=== PATIENT | female | born 1945 | race Caucasian/White ===

== ENCOUNTER → 2018-01-21 09:01 | Outpatient (CLI) | payer MEDICARE, OTHER, SELFPAY ==
[2018-01-21 10:35] LABS: Alanine Aminotransferase 32 IU/L (9-52); Albumin 4.4 g/dL (3.5-5.0); Albumin Globulin Ratio 1.6 (1.0-2.8); Alkaline Phosphatase 80 U/L (38-126); Aspartate Aminotransferase 23 IU/L (14-36); BUN Creatinine Ratio 17.5 (6-22); Bilirubin Total 0.3 mg/dL (0.2-1.3); Blood Urea Nitrogen 14 mg/dL (7-17); Calcium 9.4 mg/dL (8.4-10.2); Carbon Dioxide 30 mmol/L (22-32); Chloride 103 mmol/L (98-107); Cholesterol 174 mg/dL (140-199); Estimated Glomerular Filt Rate > 60.0 mL/min (>60); Globulin 2.7 g/dL (1.7-4.1); Glucose 94 mg/dL (80-110); HDL Cholesterol 54 mg/dL (40-60); HEMOLYSIS < 15 (0-50); LDL Cholesterol Calculated 91 mg/dL (<100); Potassium 4.3 mmol/L (3.4-5.1); Sodium 145 mmol/L (137-145); Total Protein 7.1 g/dL (6.3-8.2); Triglycerides 143 mg/dL (35-150)
[2018-01-21 11:24] LABS: Vitamin D 25 Hydroxy (D3) 47.9 ng/mL (30.0-100.0)
== END ==
PROVIDERS: PCP Student in an Organized Health Care Education/Training Program; Visit Provider Student in an Organized Health Care Education/Training Program
DX: I10 Essential (primary) hypertension (principal); Z79.899 Other long term (current) drug therapy; E78.2 Mixed hyperlipidemia; E55.9 Vitamin D deficiency, unspecified
CPT/HCPCS: 36415; 80053; 80061; 82306

== ENCOUNTER 2018-03-07 10:12 | Emergency (ER) | payer MEDICARE, OTHER, SELFPAY ==
[2018-03-07] VITALS (7 sets, daily range): BP systolic 121–148; BP diastolic 67–78; PULSE 86–99; RESP 18–22; TEMP 36.9–37.1; O2SAT 92–95; BMI 29.9
--- NOTE | 2018-03-07 10:41 | DI.RAD.S_ITS ---
PROCEDURE: XR CHEST 2V INDICATIONS: cough and congestion TECHNIQUE: 2 views of the chest were acquired. COMPARISON: None. FINDINGS: Surgical changes and devices: None. Lungs and pleura: No pleural effusions or pneumothorax. Lungs are clear. Mediastinum: Mediastinal contours are normal. Heart size is normal. Aortic atherosclerosis is present. Bones and chest wall: No suspicious bony abnormalities. Soft tissues appear unremarkable. IMPRESSION: Essentially unremarkable chest. No acute cardiopulmonary process is evident. Dictated by: Brandyn England M.D. on 03/07/2018 at 9:58 Approved by: Brandyn England M.D. on 03/07/2018 at 10:05
[2018-03-07] MEDS: ALBUTEROL/IPRATROPIUM 3 ML AMPUL INH (12:26)
[2018-03-07] MEDS: predniSONE 20 MG TABLET 40 MG PO (12:28)
[2018-03-07 13:14] LABS: Influenza A and B by PCR Rapid Negative (Negative)
--- NOTE | 2018-03-07 20:27 | ED_ITS ---
HPI - URI/Sore Throat General Chief Complaint: Upper Respiratory Symptoms Stated Complaint: chest congestion getting worse Time Seen by Provider: 03/07/18 10:18 Source: patient and family Mode of arrival: ambulatory Limitations: no limitations History of Present Illness HPI Narrative: 72-year-old nonsmoker with history of asthma presents with upper respiratory symptoms including runny nose, sore throat, cough and wheeze for the past few days. She denies any significant fever or productive cough. She has been using her bronchodilators and asthma medications as previously directed. She denies nausea, vomiting or diarrhea. MD Complaint: cough, rhinorrhea and nasal congestion Onset (ago): day(s) Duration: constant Severity: moderate Relieving factors: nothing Exacerbating factors: nothing Description of mucous: clear and watery Able to tolerate fluids by mouth: Yes Treatments prior to arrival: none Related Data Home Medications Medication Instructions Recorded Confirmed albuterol sulfate [Proventil HFA] 1 puff INH Q4H PRN #0 05/19/17 03/07/18 losartan [Cozaar] 25 mg PO DAILY #0 05/19/17 03/07/18 montelukast 10 mg PO QPM #0 05/19/17 03/07/18 simvastatin 40 mg PO BEDTIME #0 05/19/17 03/07/18 Glucosamine 1 tab PO DAILY 03/07/18 03/07/18 loratadine [Allerclear] 10 mg PO QPM 03/07/18 03/07/18 tiotropium bromide [Spiriva with 1 cap INHALATION DAILY 03/07/18 03/07/18 HandiHaler] Previous Rx's Medication Instructions Recorded budesonide-formoterol HFA 160 2 inhalation INHALATION BID #10.2 01/28/18 mcg-4.5 mcg/actuation aerosol gram inhaler prednisone See Label Instructions .ROUTE 03/07/18 .COMPLEX #30 tab Allergies Allergy/AdvReac Type Severity Reaction Status Date / Time No Known Drug Allergies Allergy Verified 01/14/18 10:15 Review of Systems Review of Systems All systems reviewed & are unremarkable except as noted in HPI and below Constitutional Denies chills, Denies fever(s), Denies lethargy and Denies weakness Eyes Denies change in vision, Denies eye discharge, Denies irritation and Denies loss of vision ENT Ears, Nose, Mouth, and Throat: Denies change in voice, Reports nasal congestion , Reports nasal discharge, Denies neck pain and Denies sore throat Cardiovascular Denies chest pain, Denies irregular heart rhythm, Denies lightheadedness, Denies palpitations, Reports dyspnea, Denies dyspnea on exertion and Denies orthopnea Respiratory Denies cough, Reports dyspnea, Denies dyspnea on exertion and Reports wheezing Gastrointestinal Gastrointestinal: Denies abdominal pain, Denies change in bowel habits, Denies diarrhea, Denies nausea and Denies vomiting Genitourinary Denies hematuria, Denies flank pain, Denies urinary incontinence and Denies urinary urgency Musculoskeletal Denies neck pain Integumentary/Breasts Denies pruritus, Denies erythema, Denies rash and Denies wounds Neurologic Denies confusion, Denies loss of vision and Denies weakness Psychiatric Denies anxiety, Denies confusion, Denies depression, Denies homicidal ideation and Denies suicidal ideation Endocrine Denies palpitations Hematologic/Lymphatic Denies easy bruising Allergic/Immunologic Reports wheezing [facility] Medical History Asthma (Chronic) Hayfever (Chronic) Hip pain (Chronic) Hyperlipidemia (Chronic 2013) Osteopenia (Chronic 2005) Sleep apnea (Chronic 2012) Surgical History Anesthesia (Resolved) History of cataract surgery (Resolved 2011) History of section (Resolved 1972) History of section (Resolved 1975) History of incision and drainage (Resolved 11/2016) Family History Father Heart disease Alcoholism Mother Heart disease Emphysema of lung Brother Morbid obesity Diabetes mellitus Heart disease Hypertension Hyperlipidemia Sister Breast cancer Grandfather Lung disease Grandmother Heart disease Grandfather No problems noted. Grandmother No problems noted. Daughter No problems noted. Daughter No problems noted. Social History Smoking Status: Never smoker alcohol intake: never substance use type: does not use Exam Narrative Exam Narrative: GENERAL: This is a well-nourished, well-developed patient, in mild distress. HEAD: Atraumatic. Normocephalic. No temporal or scalp tenderness. EYES: Pupils equal round and reactive. Extraocular motions intact. No scleral icterus. No injection or drainage. ENT: Nasal congestion, clear drainage bilaterally Nose without bleeding, purulent drainage or septal hematoma. Throat without erythema, tonsillar hypertrophy or exudate. Uvula midline. Airway patent. NECK: Trachea midline. No JVD or lymphadenopathy. Supple, nontender, no meningeal signs. CARDIOVASCULAR: Regular rate and rhythm without murmurs, gallops, or rubs. RESPIRATORY: Expiratory wheeze in all mckeon, no significant GASTROINTESTINAL: Abdomen soft, non-tender, nondistended. No hepato-splenomegaly , or palpable masses. No guarding. EXTREMITIES: No clubbing, cyanosis, or edema. No joint tenderness, effusion, or edema noted. BACK: Nontender without deformity or crepitance. No flank tenderness. NEURO: AOx3. SKIN: No rash or erythema. Initial Vital Signs Initial Vital Signs: Vital Signs Temperature 98.4 F 03/07/18 10:26 Pulse Rate 98 H 03/07/18 10:26 Respiratory Rate 22 03/07/18 10:26 Blood Pressure 148/71 H 03/07/18 10:26 Pulse Oximetry 94 03/07/18 10:26 Course Orders Ordered: ED Orders 03/07/18 12:45 Influenza A and B by PCR Rapid Stat Discontinued Medications Albuterol/Ipratropium (Duoneb) 3 ml INH NOW ONE Stop: 03/07/18 11:46 Last Admin: 03/07/18 12:26 Dose: 3 ml Prednisone (Deltasone) 40 mg PO NOW ONE Stop: 03/07/18 11:47 Last Admin: 03/07/18 12:28 Dose: 40 mg Vital Signs - 8 hr 03/07/18 12:31 03/07/18 13:00 03/07/18 14:16 Temperature 98.8 F Pulse Rate 86 99 H 93 H Respiratory Rate 18 20 Blood Pressure [Left Arm] 121/67 127/78 Pulse Oximetry 93 92 95 MDM - URI/Sore Throat Differential Diagnosis Differential diagnosis: Likely upper respiratory infection, viral infection, bronchitis and influenza Medical Records Attestation: I reviewed the patient's medical records. Lab Data Attestation: I reviewed the patient's lab results. Lab Results 03/07/18 Range/Units 12:45 Influenza A & B (PCR) Negative (Negative) Imaging Data Chest x-ray: Radiologist's impression: [address] [address] XRay Report Signed Patient: Pita Kauffman KMR#: [id number] : 7Acct:[id number] Age/Sex: 72 / FDate of Service: 03/07/18 Loc: ED Accession Number: [id number] Procedure: XR chest 2V Ordering Provider: Denzel Aj D.O. PROCEDURE: XR CHEST 2V INDICATIONS: cough and congestion TECHNIQUE: 2 views of the chest were acquired. COMPARISON: None. FINDINGS: Surgical changes and devices: None. Lungs and pleura: No pleural effusions or pneumothorax. Lungs are clear. Mediastinum: Mediastinal contours are normal. Heart size is normal. Aortic atherosclerosis is present. Bones and chest wall: No suspicious bony abnormalities. Soft tissues appear unremarkable. IMPRESSION: Essentially unremarkable chest. No acute cardiopulmonary process is evident. Dictated by: Brandyn England M.D. on 03/07/2018 at 9:58 Approved by: Brandyn England M.D. on 03/07/2018 at 10:05 Discharge Plan Departure Patient Disposition: Home Clinical Impression: Asthma exacerbation, Upper respiratory virus Discharge Date/Time: 03/07/18 14:20 Interventions: ED Discharge Assessment Last Done: 03/07/18 14:20 Instructions: Acute Bronchitis Activity Restrictions/Additional Instructions: *You have been diagnosed with [acute viral upper respiratory infection with asthma exacerbation ] *What to do: *Take medications as directed: Rx sent to [facility] *Follow up with your primary care provider in 2-3 days, call for an appointment. Let them know you were seen in the Emergency Department and that we ask that you be seen in follow up *Return to ER if you should have any new, worsening or concerning symptoms Prescriptions: New prednisone 10 mg tablet See Label Instructions .ROUTE .COMPLEX Qty: 30 RF: 0 No Action simvastatin 40 MG tablet 40 mg PO BEDTIME Qty: 0 RF: 0 losartan [Cozaar] 25 MG tablet 25 mg PO DAILY Qty: 0 RF: 0 montelukast 10 MG tablet 10 mg PO QPM Qty: 0 RF: 0 albuterol sulfate [Proventil HFA] 90 MCG/PUFF HFA aerosol inhaler 1 puff INH Q4H PRN (Reason: Shortness Of Breath) Qty: 0 RF: 0 budesonide-formoterol [Symbicort] 160-4.5 mcg/actuation HFA aerosol inhaler 2 inhalation INHALATION BID Qty: 10.2 RF: 2 loratadine [Allerclear] 10 mg Tablet 10 mg PO QPM RF: 0 Glucosamine 1 tab PO DAILY RF: 0 tiotropium bromide [Spiriva with HandiHaler] 18 mcg capsule, w/inhalation device 1 cap INHALATION DAILY RF: 0 Referrals: Antelmo Naik MD [Primary Care Provider] -
== END 2018-03-07 14:20 | disposition home or self-care (01) ==
PROVIDERS: Emergency Provider Emergency Medicine; PCP Student in an Organized Health Care Education/Training Program
DX: J45.901 Unspecified asthma with (acute) exacerbation (principal); J06.9 Acute upper respiratory infection, unspecified
CPT/HCPCS: 71046; 87400; 94640; 99283; 99284

== ENCOUNTER → 2018-09-19 08:57 | Outpatient (CLI) | payer MEDICARE, OTHER, SELFPAY ==
[2018-06-17 09:26] VITALS: BMI 24.0; BMI 28.3
--- NOTE | 2018-09-24 10:40 | PM.PFT.1 ---
Pulmonary Function Test Referral & Results Date Patient Seen: 09/19/18 Requesting provider: Dell Gibson Results: The spirometry demonstrates an FVC of 1.58 L which is 56% of predicted. The FEV1 was measured at 630 mL which is 29% of predicted. The FEV1/FVC ratio was 40 which is 52% of predicted. Following the administration of bronchodilator there was a 19% improvement in FEV1 and a 17% improvement in FEF 25-75%. Lung volumes show an SVC of 1.76 L which is 64% of predicted. The diffusing capacity was measured at 14.80 which is 64% of predicted. No hemoglobin value was provided, so no correction for potential anemia could be made, if appropriate. The maximum voluntary ventilation was [] Interpretation: This study demonstrates severe obstructive lung disease with an FEV1 of less than 1 L. There is evidence of reversibility based on significant improvement following bronchodilator administration Lung volumes are also reduced suggesting moderate restrictive lung disease There is also a mild/moderate reduction in diffusing capacity suggesting some element of disease at the capillary alveolar level
--- NOTE | 2018-09-24 10:43 | P.PFT.S_ITS ---
Pulmonary Function Test Referral & Results Date Patient Seen: 09/19/18 Requesting provider: Dell Gibson Results: The spirometry demonstrates an FVC of 1.58 L which is 56% of predicted. The FEV1 was measured at 630 mL which is 29% of predicted. The FEV1/FVC ratio was 40 which is 52% of predicted. Following the administration of bronchodilator there was a 19% improvement in FEV1 and a 17% improvement in FEF 25-75%. Lung volumes show an SVC of 1.76 L which is 64% of predicted. The diffusing capacity was measured at 14.80 which is 64% of predicted. No hemoglobin value was provided, so no correction for potential anemia could be made, if appropriate. The maximum voluntary ventilation was [] Interpretation: This study demonstrates severe obstructive lung disease with an FEV1 of less chiqui n 1 L. There is evidence of reversibility based on significant improvement following bronchodilator administration Lung volumes are also reduced suggesting moderate restrictive lung disease There is also a mild/moderate reduction in diffusing capacity suggesting some element of disease at the capillary alveolar level
== END ==
PROVIDERS: PCP Student in an Organized Health Care Education/Training Program; Referring Provider Internal Medicine Critical Care Medicine; Visit Provider Allergy & Immunology
DX: J44.9 Chronic obstructive pulmonary disease, unspecified (principal)
CPT/HCPCS: 94060; 94726; 94729

== ENCOUNTER 2018-09-29 14:00 | Outpatient (RCR) | payer MEDICARE, OTHER, SELFPAY ==
[2018-06-17 09:26] VITALS: BP 126/78; RESP 14; O2SAT 93; BMI 24.0; BMI 28.3
--- NOTE | 2018-06-17 13:27 | PR.IEVALNOTE ---
Current Diagnoses Chronic obstructive pulmonary disease, unspecified (06/17/18) Past Medical History (Last Reviewed 03/07/18 @ 20:26 by Denzel Aj DO) Asthma (Chronic) Hayfever (Chronic) Hip pain (Chronic) Hyperlipidemia (Chronic 2013) Osteopenia (Chronic 2005) Sleep apnea (Chronic 2012) Provider Team Visit Care Team Role Provider Type Antelmo Naik MD Primary Care Provider Physician Specialty: Internal Medicine Address: [address] [place] [address], [address] Email: Dell Gibson MD Attending Provider Non-Staff Specialty: Allergy & Immunology Address: [address] [place] [address], [address] Email: Pulmonary Rehab Initial Evaluation [place] Pulmonary Rehab Inital Assessment Start: 06/17/18 09:26 Freq: Status: Active Protocol: Document 06/17/18 09:26 OBINNA (Rec: 06/17/18 09:28 OBINNA [id number]) GA Exercise Assessment Dx: COPD, severe Comment chronic asthma Primary Language KINYARWANDA Guide Cruise Required No Hearing Ability Normal Visual Impairment No Limitations Visual Assist Glasses Body Alignment Posture Good Posture Relaxed Comment bursistis R hip History of Falling (Immediate or No Previous) Secondary Diagnosis (More Than 2 Medical No Diagnoses) Ambulatory Aid None/bed rest/nurse assist IV/Heparin Lock No Mental Status Oriented to own ability Comment walks up to 2.5 miles 2x week GA Vital Signs Pulse Oximetry (91-100 %) 93 Nasal Cannula No Respiratory Rate (12-24 breaths/min) 14 Respiratory Effort Non-Labored Respiratory Depth Normal Assessment clear to auscultation no wheezes, rales rhonchi slightly diminished Right Arm Blood Pressure (90/60-140/90 mmHg) 126/78 Blood Pressure Method Manual Cuff/Auscultation Blood Pressure Position Sitting Left Arm Blood Pressure (90/60-140/90 mmHg) 126/78 Blood Pressure Method Manual Cuff/Auscultation Blood Pressure Position Sitting GA Six Minute Walk Test Respiratory Rate (breaths/min) 14 Pulse Rate (beats/min) 73 O2 Saturation by Pulse Oximetry (%) 93 Pulse Rate (beats/min) 91 Ambulation Distance (feet) 200 O2 Saturation by Pulse Oximetry (%) 88 Pulse Rate (beats/min) 96 Ambulation Distance (feet) 200 O2 Saturation by Pulse Oximetry (%) 87 Pulse Rate (beats/min) 97 Ambulatory Distance (feet) 200 O2 Saturation by Pulse Oximetry (%) 88 Pulse Rate (beats/min) 97 Ambulation Distance (feet) 300 O2 Saturation by Pulse Oximetry (%) 89 Pulse Rate (beats/min) 97 Ambulation Distance (feet) 150 O2 Saturation by Pulse Oximetry (%) 90 PUlse Rate (beats/min) 95 Ambulation Distance (feet) 200 O2 Saturation by Pulse Oximetry (%) 88 Respiratory Rate (breaths/min) 16 Pulse Rate (beats/min) 75 O2 Saturation by Pulse Oximetry (%) 95 Activity Tolerance Good Distance 1250.0 Waqar RPE Scale 12 Oriented to RPE Scale Yes Dyspnea 2 Oriented to Dyspnea Scale Yes GA Exercise Goals Exercise Goals progression of exercise training will result from increases in time, intensity, and frequency. Initial emphasis will be on increasing intensity. Exercise Goals demonstrate proper technique with pursed lip breathing demonstrate proper breath sequencing DASI Number and Comment 7.25 mets GA Nutrition Assessment PFT Date 04/22/18 Forced Vital Capacity (FVC) 1.29 45% Forced Exp. Volume/Forced Vital Cap 54 Ratio (FEV1/FVC Ratio) Forced Expiratory Volume in 1 sec. 0.70 33% Admit Height 160.02 cm Admit Weight 72.575 kg Admit Body Mass Index (BMI) 28.3 Additional Comment discussed referral to superintendent maintenance Weight Goal 150 BMI Goal 24 Liters Per Minute at Rest 0 Liters per Minute with ADL's 0 Liters per Minute with Sleep 0 Liters per Minute with Exercise 0 High Energy Periods Mid-Afternoon Tolerates Activity Good Signs and Symptoms Activity Intolerance Dyspnea on Exertion Daytime Naps No GA Education Pre-Test Score 65% Tobacco Use Former, Quit >6 Months Tobacco Product Used cigarettes Total Years Used 35 Use No Concerns None Education Topics Breathing Retraining Discussed Education Requirements on Yes Intake GA Psychosocial Initial Assess HADS Score 3 HADS Score 4 Marital Status Physician Comment Ready for Pulmonary Rehabilitation Cooperative Motivated
[2018-07-17 15:42] VITALS: BMI 29.5
--- NOTE | 2018-07-17 15:50 | PR.REVALNOTE ---
Current Diagnoses Chronic obstructive pulmonary disease, unspecified (07/17/18) Past Medical History (Last Reviewed 03/07/18 @ 20:26 by Denzel Aj DO) Asthma (Chronic) Hayfever (Chronic) Hip pain (Chronic) Hyperlipidemia (Chronic 2013) Osteopenia (Chronic 2005) Sleep apnea (Chronic 2012) Provider Team Visit Care Team Role Provider Type Dell Gibson MD Non-Staff Specialty: Medical Address: [address] [place] [address], [address] Email: Antelmo Naik MD Primary Care Provider Physician Specialty: Internal Medicine Address: [address] [place] [address], [id number] Email: Dell Gibson MD Attending Provider Non-Staff Specialty: Allergy & Immunology Address: [address] [place], [address] Email: Pulmonary Rehab Re-Evaluation IN Pulmonary Rehab. Re-Assessment Start: 06/17/18 09:26 Freq: Status: Active Protocol: Document 07/17/18 15:42 OBINNA (Rec: 07/17/18 15:50 OBINNA [id number]) IN Exercise Re-Assessment New Session Number 1-12 Type Nustep Treadmill METs (resistance level) 3.50 TM 3.02 NS % Improvement 23% TM 13% NS Interval Training Yes: 5.59 NS Shortness of Breath with Exercise Yes Desaturation with Exercise No Free Weight Yes: 3# 12R 2S Band Level Yes: #4 BAND Intervention Frequent reminders to initiate PLB when short of breath Toward Target Goals demonstrates proper technique with pursed lip breathing- showing progress IN Nutrition Re-Assessment Height 160.02 cm Weight 75.735 kg Current BMI (BMI) 29.5 Progress to Weight Goal Yes Hypoxia Re-Assessment does not require supplemental oxygen at this time IN Education Re-Assessment Topics Normal Anatomy and Physiology Chronic Lung Disease Description and Interpretation Medical Tests Breathing Retraining Goals Pt will Master PLB and Diaphragmatic Breathing Pt will Master Energy Conserving Techniques Pt will learn exercise safety Pt will continue ED topics until completion IN Psychosocial Re-Assessment Patient in Class Regularly Yes Interventions Pt attending class regularly Goals Pt will continue to attend classes 3x wk Participate in social and educational discussion Received emotional support from family/friends
--- NOTE | 2018-09-29 16:33 | PR.DCNOTE ---
Current Diagnoses Chronic obstructive pulmonary disease, unspecified (09/29/18) Past Medical History (Last Reviewed 03/07/18 @ 20:26 by Denzel Aj DO) Asthma (Chronic) Hayfever (Chronic) Hip pain (Chronic) Hyperlipidemia (Chronic 2013) Osteopenia (Chronic 2005) Sleep apnea (Chronic 2012) Provider Team Visit Care Team Role Provider Type Dell Gibson MD Non-Staff Specialty: Medical Address: [address] [place] [address], [facility] Email: Antelmo Naik MD Primary Care Provider Physician Specialty: Internal Medicine Address: [address] [place] [address], [address] Email: Dell Gibson MD Attending Provider Non-Staff Specialty: Allergy & Immunology Address: [facility] [place], [address] Email: Pulmonary Rehab Discharge Evaluation [place] Pulmonary Rehab. DC Assessment Start: 06/17/18 09:26 Freq: Status: Active Protocol: Document 09/29/18 16:22 [facility] (Rec: 09/29/18 16:33 [facility] [id number]) NE Exercise Discharge Assess Session 1 Type Treadmill DELIA METs (resistance level) 6.23TM 7.0 STRDR % Improvement TM 161% STRDR 168% Interval Training Yes Shortness of Breath with Exercise Yes Desaturation with Exercise No Free Weight Yes: 3# 12R 3S Band Level Yes: #4 Toward Target Goals Functional resistance exercises-goal met issued independent resistance exercise program Aerobic activity-increased participation in physical activities both domestic and recreational activities improved functional capacity with improved endurance and strength NE Nutrition DC Assessment Weight 76.204 kg Weight Goal Met No Patient Ready Yes Reason Completed Max Sessions NE Education DC Assessment Education Topics Normal Pulmonary Anatomy and Physiology Chronic Lung Disease Description and Interpretation of Medical Tests Breathing Retraining Bronchial Hygiene Medications Benefits of Exercise Activities of Daily Living/ Leisure Activities Eating Right Irritant Avoidance/Prevention of Respiratory Infection Coping with Chronic Lung Disease Oxygen How and When Asthma Education Target Goals Pt was educated on home exercise prescription Pt educated on home resistance training Pt educated on oxygen therapy for home PT educated on medication's taken at home Pt educated on PBL and relaxation techniques NE Psychosocial DC Assessment HADS Depression Score 4 HADS Anxiety Score 3 Phase III Yes NE Six Minute Walk Test Oxygen Delivery Method Room Air Respiratory Rate (breaths/min) 12 Pulse Rate (beats/min) 85 O2 Saturation by Pulse Oximetry (%) 95 Pulse Rate (beats/min) 103 Ambulation Distance (feet) 250 O2 Saturation by Pulse Oximetry (%) 95 Pulse Rate (beats/min) 108 Ambulation Distance (feet) 250 O2 Saturation by Pulse Oximetry (%) 93 Pulse Rate (beats/min) 111 Ambulatory Distance (feet) 250 O2 Saturation by Pulse Oximetry (%) 92 Pulse Rate (beats/min) 107 Ambulation Distance (feet) 250 O2 Saturation by Pulse Oximetry (%) 93 Pulse Rate (beats/min) 109 Ambulation Distance (feet) 250 O2 Saturation by Pulse Oximetry (%) 93 PUlse Rate (beats/min) 109 Ambulation Distance (feet) 275 O2 Saturation by Pulse Oximetry (%) 93 Respiratory Rate (breaths/min) 16 Pulse Rate (beats/min) 92 O2 Saturation by Pulse Oximetry (%) 93 Activity Tolerance Good Adverse Reactions Increased Shortness of Breath Distance 1525 Waqar RPE Scale 11 Oriented to RPE Scale Yes Dyspnea 2 Oriented to Dyspnea Scale Yes
== END 2018-10-02 07:37 ==
LOC: PUL 14:00
PROVIDERS: PCP Student in an Organized Health Care Education/Training Program; Visit Provider Allergy & Immunology
DX: J44.9 Chronic obstructive pulmonary disease, unspecified (principal)
CPT/HCPCS: G0424

== ENCOUNTER → 2018-12-24 09:15 | Outpatient (CLI) | payer MEDICARE, OTHER, SELFPAY ==
[2018-06-17 09:26] VITALS: BMI 24.0; BMI 28.3
--- NOTE | 2018-12-24 09:17 | DI.MG.S_ITS ---
BILATERAL DIGITAL SCREENING MAMMOGRAM 3D/2D WITH CAD: 12/24/2018 CLINICAL: Routine screening. Family history of breast cancer. Comparison is made to exams dated: 04/10/2016 mammogram and 08/22/2017 mammogram - [facility]. The tissue of both breasts is heterogeneously dense. This may lower the sensitivity of mammography. Current study was also evaluated with a Computer Aided Detection (CAD) system. No significant masses, calcifications, or other findings are seen in either breast. There has been no significant interval change. IMPRESSION: NEGATIVE There is no mammographic evidence of malignancy. A 1 year screening mammogram is recommended. This exam was interpreted at Station ID: [id number]. NOTE: For mammograms, a report in lay terms will be sent to the patient. Approximately 15% of breast malignancies will not be visualized mammographically. In the management of a palpable breast mass, a negative mammogram must not discourage biopsy of a clinically suspicious lesion. Electronically Signed By: Chris nunez/nyla:12/24/2018 18:03:19 letter sent: Normal Exam ACR BI-RADS Category 1: Negative [id number]
== END ==
PROVIDERS: PCP Student in an Organized Health Care Education/Training Program; Visit Provider Student in an Organized Health Care Education/Training Program
DX: Z12.31 Encounter for screening mammogram for malignant neoplasm of breast (principal); Z80.3 Family history of malignant neoplasm of breast
CPT/HCPCS: 77063; 77067

== ENCOUNTER → 2019-02-06 12:56 | Outpatient (CLI) | payer MEDICARE, OTHER, SELFPAY ==
[2018-06-17 09:26] VITALS: BMI 24.0; BMI 28.3
== END ==
PROVIDERS: PCP Student in an Organized Health Care Education/Training Program; Visit Provider Student in an Organized Health Care Education/Training Program
DX: M85.852 Other specified disorders of bone density and structure, left thigh (principal); Z87.891 Personal history of nicotine dependence; Z78.0 Asymptomatic menopausal state; Z91.89 Other specified personal risk factors, not elsewhere classified
CPT/HCPCS: 77080

== ENCOUNTER 2019-02-12 09:25 | Emergency (ER) | payer MEDICARE, OTHER, SELFPAY ==
[2018-06-17 09:26] VITALS: BMI 24.0; BMI 28.3
[2019-02-12 09:30] VITALS: BP 153/81; PULSE 89; RESP 15; TEMP 36.7; O2SAT 98; BMI 30.5
--- NOTE | 2019-02-12 09:43 | DI.RAD.S_ITS ---
PROCEDURE: XR WRIST LT MIN 3V INDICATIONS: pain TECHNIQUE: 4 views of the wrist were acquired. COMPARISON: None. FINDINGS: Bones: Osteophytic changes are noted throughout wrist joints predominantly involving radial aspect. No gross acute fractures or dislocations. No suspicious bony lesions. Scaphoid view: Scaphoid is grossly intact. Soft tissues: No suspicious soft tissue calcifications. IMPRESSION: Osteophytic changes throughout wrist joints predominately along radial aspect. No definite acute wrist fracture or dislocation. Dictated by: Fausto Paulino M.D. on 02/12/2019 at 10:27 Approved by: Fausto Paulino M.D. on 02/12/2019 at 10:35
[2019-02-12 10:00] VITALS: BP 135/64; PULSE 72; RESP 14; O2SAT 95
--- NOTE | 2019-02-12 10:24 | ED.UPPEXIN ---
HPI - Extremity Injury (Upper) General Chief Complaint: Extremity Injury, Upper Stated Complaint: Left wrist pain/swollen Time Seen by Provider: 02/12/19 09:34 Source: patient Mode of arrival: Ambulatory Limitations: no limitations History of Present Illness HPI narrative: Patient is a 73-year-old female who presents with left wrist pain ongoing for the last 5 days. She denies any injury or fall she notes that it is swollen. She does admit but has been dating for quite sometime she denies any overuse. She has no numbness or tingling. She has a history of cellulitis in her legs she was worried it might be that. However there is no erythema she denies any fever or chills. She has been taking Tylenol and ibuprofen as needed MD complaint: injury to: left and wrist Related Data Home Medications Medication Instructions Recorded Confirmed albuterol sulfate [Proventil HFA] 1 puff INH Q4H PRN #0 05/19/17 01/29/19 montelukast 10 mg PO QPM #0 05/19/17 01/29/19 Glucosamine 1 tab PO DAILY 03/07/18 01/29/19 loratadine [Allerclear] 10 mg PO QPM 03/07/18 01/29/19 Previous Rx's Medication Instructions Recorded budesonide-formoterol HFA 160 2 inhalation INHALATION BID #10.2 01/28/18 mcg-4.5 mcg/actuation aerosol gram inhaler tiotropium bromide 18 mcg capsule 1 cap INHALATION DAILY #90 10/03/18 with inhalation device inhalation losartan 25 mg tablet 25 mg PO DAILY #90 tab 01/29/19 simvastatin 40 mg tablet 40 mg PO BEDTIME #90 tab 01/29/19 Allergies Allergy/AdvReac Type Severity Reaction Status Date / Time No Known Drug Allergies Allergy Verified 02/12/19 09:30 Review of Systems Review of Systems Narrative: GENERAL: Denies chills,fever HEENT: Denies throat pain RESPIRATORY: Denies dyspnea, cough, wheezing CARDIOVASCULAR: Denies chest pain, palpitations GASTROINTESTINAL: Denies nausea, vomiting MUSCULOSKELETAL: See HPI SKIN: No rash, no laceration, no pruritus NEUROLOGIC: Denies weakness, dizziness, headache, numbness 8 point review of systems is negative except for those stated above and HPI Patient History Medical History Asthma (Chronic) Hayfever (Chronic) Hip pain (Chronic) Hyperlipidemia (Chronic 2013) Osteopenia (Chronic 2005) Sleep apnea (Chronic 2012) Surgical History Anesthesia (Resolved) History of cataract surgery (Resolved 2011) History of section (Resolved 1972) History of section (Resolved 1975) History of incision and drainage (Resolved 11/2016) Family History Father Heart disease Alcoholism Mother Heart disease Emphysema of lung Brother Morbid obesity Diabetes mellitus Heart disease Hypertension Hyperlipidemia Sister Breast cancer Grandfather Lung disease Grandmother Heart disease Grandfather No problems noted. Grandmother No problems noted. Daughter No problems noted. Daughter No problems noted. Social History Smoking Status: Never smoker Tobacco: How many years used: 35 alcohol intake: never substance use type: does not use alcohol intake frequency: 0-2 drinks per day Substance Use Type: does not use Exam Initial Vital Signs Initial Vital Signs: Vital Signs Temperature 98.0 F 02/12/19 09:30 Pulse Rate 89 02/12/19 09:30 Respiratory Rate 15 02/12/19 09:30 Blood Pressure 153/81 H 02/12/19 09:30 Pulse Oximetry 98 02/12/19 09:30 GENERAL: Alert pleasant well-appearing female no acute distress CARDIOVASCULAR: peripheral pulses in tact, cap refill <2 sec RESPIRATORY: No respiratory distress, speaks in full sentences without difficulty EXTREMITIES: Normal range of motion, no clubbing or edema. Neurovascularly intact Left wrist at thenar eminence does appear slightly swollen no erythema peripheral pulses intact. Pain with wrist flexion and extension. No pain with pronation or supination. NEUROLOGICAL: Cranial nerves II through XII grossly intact. Normal gait and speech. SKIN: Warm, dry, no petechiae, no rashes or lesions. Course Orders Ordered: ED Orders 02/12/19 09:43 XR wrist LT min 3V Stat Vital Signs Vital signs: Vital Signs - 8 hr 02/12/19 10:00 Pulse Rate 72 Respiratory Rate 14 Blood Pressure [Right Arm] 135/64 Pulse Oximetry 95 MDM - Extremity Injury (Upper) Imaging Data left wrist XR: Radiologist's impression: PROCEDURE: XR WRIST LT MIN 3V INDICATIONS: pain TECHNIQUE: 4 views of the wrist were acquired. COMPARISON: None. FINDINGS: Bones: Osteophytic changes are noted throughout wrist joints predominantly involving radial aspect. No gross acute fractures or dislocations. No suspicious bony lesions. Scaphoid view: Scaphoid is grossly intact. Soft tissues: No suspicious soft tissue calcifications. IMPRESSION: Osteophytic changes throughout wrist joints predominately along radial aspect. No definite acute wrist fracture or dislocation. Dictated by: Fausto Paulino M.D. on 02/12/2019 at 10:27 [facility] Narrative Medical decision making narrative: No sign of infection no trauma or injury. There is some swelling likely spur he had a recommended she get a brace from pharmacy and take ibuprofen as needed for pain. Discharge Plan Departure Patient Disposition: Home Clinical Impression: Left wrist sprain Qualifiers: Encounter type: initial encounter Qualified Code(s): S63.502A - Unspecified sprain of left wrist, initial encounter Discharge Date/Time: 02/12/19 10:39 Instructions: DI for Wrist Sprain Activity Restrictions/Additional Instructions: *You have been diagnosed with left wrist sprain *What to do: At this time I recommend a low wrist brace and wear it as needed. May ice 20-30 minutes at a time. Limit use but may increase the tolerated. Elevate *Continue to take medications as directed Ibuprofen 600 mg every 6-8 hours if needed for pain for 1 week with food *Follow up with your primary care provider in 2-3 days *Return to ER if you should have of redness, increasing pain, weakness in fingers swelling or any new, worsening or concerning symptoms Prescriptions: No Action montelukast 10 MG tablet 10 mg PO QPM Qty: 0 RF: 0 albuterol sulfate [Proventil HFA] 90 MCG/PUFF HFA aerosol inhaler 1 puff INH Q4H PRN (Reason: Shortness Of Breath) Qty: 0 RF: 0 budesonide-formoterol [Symbicort] 160-4.5 mcg/actuation HFA aerosol inhaler 2 inhalation INHALATION BID Qty: 10.2 RF: 2 Spiriva with HandiHaler 18 mcg capsule, w/inhalation device 1 cap INHALATION DAILY Qty: 90 RF: 1 losartan [Cozaar] 25 mg tablet 25 mg PO DAILY Qty: 90 RF: 3 simvastatin 40 mg tablet 40 mg PO BEDTIME Qty: 90 RF: 3 loratadine [Allerclear] 10 mg Tablet 10 mg PO QPM RF: 0 Glucosamine 1 tab PO DAILY RF: 0 Referrals: Antelmo Naik MD [Primary Care Provider] -
== END 2019-02-12 10:39 | disposition home or self-care (01) ==
PROVIDERS: Emergency Provider Emergency Medicine; PCP Student in an Organized Health Care Education/Training Program
DX: S63.502A Unspecified sprain of left wrist, initial encounter (principal)
CPT/HCPCS: 73110; 99282; 99283

== ENCOUNTER → 2019-05-25 06:25 | Outpatient (CLI) | payer MEDICARE, OTHER, SELFPAY ==
[2018-06-17 09:26] VITALS: BMI 24.0; BMI 28.3
--- NOTE | 2019-05-25 06:25 | DI.MRI.S_ITS ---
PROCEDURE: MR KNEE LT WO CON INDICATIONS: Left knee pain TECHNIQUE: Noncontrast sagittal PD fast spin echo and T2 fast spin echo with fat saturation, sagittal 3-D FLASH with fat saturation; coronal T1 spin echo and PD fast spin echo with fat saturation, and axial PD fast spin echo with fat saturation through the knee. COMPARISON: None. FINDINGS: Image quality: Excellent. Menisci: The medial and lateral menisci demonstrate normal morphology and internal signal. The meniscal root ligaments appear intact. Cruciate ligaments: The anterior and posterior cruciate ligaments appear intact. Medial structures: Low-grade MCL sprain is seen. The posterior oblique ligament, semimembranosus tendon insertions, oblique popliteal ligament, and meniscocapsular junction appear intact. Visualized portions of the pes anserinus tendons appear normal. No abnormal bursal fluid. Lateral structures: The lateral collateral ligament, long and short heads of the biceps femoris tendon appear intact. The popliteus tendon appears normal; the popliteofibular ligament appears intact. The posterosuperior and anteroinferior popliteomeniscal fascicles appear intact. The arcuate and fabellofibular ligaments appear intact, on either side of the lateral inferior geniculate artery. Iliotibial band appears normal. Anterior structures: The quadriceps and patellar tendons appear intact. Patellar alignment is normal. No femoral trochlear dysplasia or ventral trochlear prominence. No edema in the infrapatellar fat pad. Bones and cartilage: Significant marrow edema involving medial periphery of the proximal tibia extending to medial tibial plateau. No definite discrete fracture line is seen. Finding likely represent bony contusion. 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 Joint space: There is small to moderate amount of joint fluid, no gross intra-articular loose body. No Manzanares's cyst. Normal appearing synovial plicae are incidentally noted. IMPRESSION: 1. Marrow edema involving the medial periphery of proximal tibia extending to medial tibial plateau. No cortical disruption. No definite fracture line is seen. Finding may represent bony contusion bruise and subtle subcortical fracture. 2. No other area of marrow edema. [id number] tricompartment osteoarthritis and low-grade chondromalacia as above. Small amount of joint fluid. 3. Cruciate ligaments are intact. No evidence of focal meniscal tear. 4. Low-grade MCL sprain. Dictated by: Fausto Paulino M.D. on 05/25/2019 at 8:55 Approved by: Fausto Paulino M.D. on 05/25/2019 at 9:08
== END ==
PROVIDERS: PCP Student in an Organized Health Care Education/Training Program; Referring Provider Student in an Organized Health Care Education/Training Program; Visit Provider Student in an Organized Health Care Education/Training Program
DX: M25.562 Pain in left knee (principal); M17.12 Unilateral primary osteoarthritis, left knee; M94.262 Chondromalacia, left knee; S83.412A Sprain of medial collateral ligament of left knee, initial encounter; M25.462 Effusion, left knee
CPT/HCPCS: 73721

== ENCOUNTER → 2020-04-20 14:59 | Outpatient (CLI) | payer MEDICARE, OTHER, SELFPAY ==
[2018-06-17 09:26] VITALS: BMI 24.0; BMI 28.3
[2020-04-20] MEDS: COVID-19 VACC #1, MRNA(MOD) 100 MCG/0.5 ML VIAL IM (15:05)
== END ==
PROVIDERS: PCP Student in an Organized Health Care Education/Training Program; Visit Provider Internal Medicine
DX: Z23 Encounter for immunization (principal)
CPT/HCPCS: 0011A; 91301

== ENCOUNTER → 2020-05-18 14:58 | Outpatient (CLI) | payer MEDICARE, OTHER, SELFPAY ==
[2018-06-17 09:26] VITALS: BMI 24.0; BMI 28.3
[2020-05-18] MEDS: COVID-19 VACC #2, MRNA(MOD) 100 MCG/0.5 ML VIAL IM (15:05)
== END ==
PROVIDERS: PCP Student in an Organized Health Care Education/Training Program; Visit Provider Internal Medicine
DX: Z23 Encounter for immunization (principal)
CPT/HCPCS: 0012A; 91301

== ENCOUNTER → 2021-06-27 10:57 | Outpatient (CLI) | payer MEDICARE, OTHER, SELFPAY ==
[2018-06-17 09:26] VITALS: BMI 24.0; BMI 28.3
[2021-06-30 14:00] LABS: ANA Screen, IFA Negative (.)
== END ==
PROVIDERS: PCP Student in an Organized Health Care Education/Training Program; Referring Provider Dermatology; Visit Provider Dermatology
DX: L23.9 Allergic contact dermatitis, unspecified cause (principal)
CPT/HCPCS: 36415; 86038

== ENCOUNTER 2022-05-20 19:23 | Emergency (ER) | payer MEDICARE, OTHER, SELFPAY ==
[2018-06-17 09:26] VITALS: BMI 24.0; BMI 28.3
[2022-05-20 20:02] VITALS: PULSE 87; RESP 16; TEMP 36.6; O2SAT 97; BMI 31.1
--- NOTE | 2022-05-20 21:28 | ED_ITS ---
HPI - Wound/Laceration General Chief Complaint: Wound/Laceration Stated Complaint: Hand lac Time Seen by Provider: 05/20/22 19:29 Source: patient Mode of arrival: Ambulatory History of Present Illness HPI narrative: 76-year-old female nonsmoker with noncontributory medical history presents with a chief complaint of an accidental laceration to the dorsum of her left index finger earlier tonight. She was doing the dishes and accidentally cut her finger with a very sharp knife suffering a laceration with subsequent bleeding pain and a weakness with motion of her finger. Her tetanus is up-to-date. She has no other injury, denies numbness or tingling. Patient washed it immediately and wrapped prior to coming to see us Related Data Home Medications Medication Instructions Recorded Confirmed albuterol sulfate 90 mcg/actuation 1 puff INH Q4H PRN Shortness Of 05/19/17 05/22/19 aerosol inhaler (Proventil HFA) Breath ##0 montelukast 10 mg tablet 10 mg PO QPM ##0 05/19/17 05/22/19 Glucosamine 1 tab PO DAILY 03/07/18 05/22/19 loratadine 10 mg tablet 10 mg PO QPM 03/07/18 05/22/19 (Allerclear) tiotropium bromide 2.5 2 puff inhalation DAILY 05/22/19 05/22/19 mcg/actuation mist for inhalation (Spiriva Respimat) Previous Rx's Medication Instructions Recorded budesonide-formoterol HFA 160 2 inhalation inhalation BID #10.2 01/28/18 mcg-4.5 mcg/actuation aerosol grams inhaler (Symbicort) simvastatin 40 mg tablet 40 mg PO BEDTIME #90 tabs 04/22/19 losartan 25 mg tablet (Cozaar) 25 mg PO DAILY #90 tabs 04/24/19 cephalexin 500 mg capsule 500 mg PO BID #14 caps 05/20/22 Allergies Allergy/AdvReac Type Severity Reaction Status Date / Time No Known Drug Allergies Allergy Verified 05/22/19 14:19 Review of Systems Review of Systems Narrative: GENERAL: Denies chills, fatigue, malaise, fever, sweats. HEENT: Denies sinus pain, ear pain, sore throat, difficulty swallowing, dizziness. RESPIRATORY: Denies dyspnea, cough, wheezing, hemoptysis, sputum. CARDIOVASCULAR: Denies chest pain, palpitations, orthopnea, edema, GASTROINTESTINAL: Denies nausea, vomiting, abdominal pain, diarrhea, constipation, melena. : Denies dysuria, frequency, incontinence, hematuria, urinary retention. MUSCULOSKELETAL: See HPI SKIN: See HPI NEUROLOGIC: Denies weakness, headache, numbness, change in speech, confusion, seizures, incoordination. PSYCHIATRIC: No concerning psychosocial issues. 12 point review of systems is negative except for those stated above Patient History Medical History Asthma Hayfever Hip pain Hyperlipidemia (2013) Osteopenia (2006) Sleep apnea (2013) Surgical History Anesthesia History of cataract surgery (2011) History of section (1972) History of section (1975) History of incision and drainage (11/2016) Family History Father Heart disease Alcoholism Mother Heart disease Emphysema of lung Brother Morbid obesity Diabetes mellitus Heart disease Hypertension Hyperlipidemia Sister Breast cancer Grandfather Lung disease Grandmother Heart disease Grandfather No problems noted. Grandmother No problems noted. Daughter No problems noted. Daughter No problems noted. Social History Smoking Status: Never smoker Tobacco: How many years used: 35 alcohol intake: never substance use type: does not use Smoking Status: Never smoker alcohol intake frequency: 0-2 drinks per day Substance Use Type: does not use Exam Narrative Exam Narrative: GEN: AOx3 and in mild distress EYES: Pupils are equal, round, and reactive to light and accommodation. Extraoccular muscles are intact bilaterally. There is no subconjunctival hemo rrhage or exudate. CHEST: Lungs are clear to auscultation bilaterally and free of wheezes, rales, or rhonchi. Heart rate is regular rhythm, there are no murmurs, clicks, rubs, or gallops. There is no chest wall tenderness. ABD: Abdomen is soft and nontender. There is no guarding or rebound. Bowel sounds are normal in all 4 quadrants. There is no mass or organomegaly. EXT: 0.5 cm laceration on the dorsal aspect of the left hand over the 2nd metacarpophalangeal joint. When viewed in a bloodless field there is obvious defect in the extensor tendon Full painless ROM of all extremities with no loss of sensation or strength. SKIN: Warm, pink, and dry. No erythema or rash Initial Vital Signs Initial Vital Signs: Vital Signs Temperature 97.9 F 05/20/22 20:02 Pulse Rate 87 05/20/22 20:02 Respiratory Rate 16 05/20/22 20:02 Pulse Oximetry 97 05/20/22 20:02 Oxygen Delivery Method 05/20/22 20:02 Procedures Laceration Repair Laceration 1: Site: hand Side (If applicable): left Size (cm): 1.0 Description: linear Depth: involves tendon Local Anesthetic: lidocaine 2% Amount of anesthesia used (mL): 4 Pre-repair: wound explored, irrigated extensively and cleansed with chlorhexadine Skin layer closed with: nylon Skin layer suture size: 4-0 Number of sutures: 3 Technique: simple, interrupted Course Orders Ordered: Discontinued Medications Cefazolin Sodium (Cephalexin 250 Mg Cap Prepack) 1 bottle MISC SEEINSTR ONE Stop: 05/20/22 21:33 Last Admin: 05/20/22 21:48 Dose: 250 mg Documented By: PATRICIA Lidocaine HCl (Lidocaine 2% Inj Mdv 20ml) 1 ml SUBCUT NOW ONE Stop: 05/20/22 21:33 Last Admin: 05/20/22 22:03 Dose: 1 ml Documented By: PATRICIA Vital Signs Vital signs: Vital Signs - 8 hr 05/20/22 22:05 Temperature 97.6 F Pulse Rate 82 Respiratory Rate 16 Blood Pressure 144/88 H Pulse Oximetry 98 Oxygen Delivery Method Room Air MDM - Wound/Laceration MDM Narrative Medical decision making narrative: [76] year old patient presents with Multiple etiologies for patient's symptoms considered including, but not limited to: Laceration, tendon involvement, capsule involvement [] Prior Charts reviewed in our EMR Primary Historian: patient Extensor tendon involvement visualized in bloodless field after laceration with knife, irrigated and cleansed with chlorhexidine, closed with sutures and splinted. Antibiotics started tonight, tetanus is current. Antibiotics sent to her pharmacy of choice. Discussion with patient regarding the importance of follow-up with orthopedics. Findings and discharge diagnosis discussed with patient/family followed by verbalization of understanding Return precautions discussed with patient/family whom verbalize understanding of diagnosis and plan Discharge Plan Departure Patient Disposition: Home Clinical Impression: Complicated laceration of hand, Extensor tendon laceration of finger with open wound Instructions: DI for Laceration Repair Activity Restrictions/Additional Instructions: *You have been diagnosed with [left hand laceration with extensor tendon involvement overlying the 2nd metacarpophalangeal joint *What to do: *Please continue to take your regular medications as directed. [ x] New medication prescriptions sent to your pharmacy: [ [facility]] [x] Tylenol and occasional Motrin for pain *Please follow up with [ Augustina] of [facility] in 2-3 days, call for an appointment. Let them know you were seen in the Emergency Department and that we ask that you be seen in follow up. We will electronically transmit a record of today's note if your PCP is in our system *Return to Emergency Department if you should have any new, worsening or concerning symptoms, such as [worsening pain, significant swelling, cold extremities, numbness, tingling, weakness or other bothersome symptoms Prescriptions: New cephalexin 500 mg capsule 500 mg PO BID Qty: 14 0RF No Action montelukast 10 MG tablet 10 mg PO QPM Qty: 0 albuterol sulfate [Proventil HFA] 90 MCG/PUFF HFA aerosol inhaler 1 puff INH Q4H PRN (Reason: Shortness Of Breath) Qty: 0 budesonide-formoterol [Symbicort] 160-4.5 mcg/actuation HFA aerosol inhaler 2 inhalation INHALATION BID Qty: 10.2 2RF simvastatin 40 mg tablet 40 mg PO BEDTIME Qty: 90 3RF losartan [Cozaar] 25 mg tablet 25 mg PO DAILY Qty: 90 3RF Spiriva Respimat 2.5 mcg/actuation mist 2 puff INHALATION DAILY loratadine [Allerclear] 10 mg Tablet 10 mg PO QPM Glucosamine 1 tab PO DAILY Referrals: Wayne Jackman MD [Physician] - Osman Bahena DO [Primary Care Provider] - Stand Alone Forms: Patient Portal/API
[2022-05-20] MEDS: cephALEXin 250 MG CAP PREPACK 1 BOTTLE MISC (21:48)
[2022-05-20] MEDS: LIDOCAINE 2% INJ SDV 5ML 5 ML (21:48)
[2022-05-20] MEDS: LIDOCAINE 2% INJ MDV 20ML SUBCUT (22:03)
[2022-05-20 22:05] VITALS: BP 144/88; PULSE 82; RESP 16; TEMP 36.4; O2SAT 98
== END 2022-05-20 22:05 | disposition home or self-care (01) ==
PROVIDERS: Emergency Provider Emergency Medicine; PCP Student in an Organized Health Care Education/Training Program
DX: S56.422A Laceration of extensor muscle, fascia and tendon of left index finger at forearm level, initial encounter (principal); W26.0XXA Contact with knife, initial encounter
CPT/HCPCS: 12001; 99281; 99283

== ENCOUNTER 2022-10-29 19:51 | Emergency (ER) | payer MEDICARE, OTHER, SELFPAY ==
[2018-06-17 09:26] VITALS: BMI 24.0; BMI 28.3
[2022-10-29] VITALS (16 sets, daily range): BP systolic 113–167; BP diastolic 56–76; PULSE 109–127; RESP 18–50; TEMP 36.9–38; O2SAT 87–98; BMI 31.1
--- NOTE | 2022-10-29 20:20 | DI.RAD.S_ITS ---
PROCEDURE: XR CHEST 1V INDICATIONS: suspected sepsis TECHNIQUE: One view of the chest was acquired. COMPARISON: [facility], CR, XR CHEST 2V, 03/07/2018, 10:43. FINDINGS: Surgical changes and devices: None. Lungs and pleura: Lungs are clear. No pleural effusions or pneumothorax. Mediastinum: Mediastinal contours appear normal. Heart size is normal. Bones and chest wall: No suspicious bony lesions. Overlying soft tissues appear unremarkable. IMPRESSION: 1. No acute cardiopulmonary disease. Dictated by: Chris Warren M.D. on 10/29/2022 at 21:06 Approved by: Chris Warren M.D. on 10/29/2022 at 21:10
[2022-10-29] MEDS: ONDANSETRON 4 MG/2 ML INJ IV (20:25)
--- NOTE | 2022-10-29 20:27 | ED.CHESTPAIN ---
HPI - Chest Pain General Chief Complaint: Chest Pain Stated Complaint: chills/N/V/chest pain/back pain Time Seen by Provider: 10/29/22 20:09 Source: patient and family Mode of arrival: Ambulatory Limitations: no limitations History of Present Illness HPI narrative: 77-year-old female nonsmoker with history of asthma and hypertension with occasional use of supplemental oxygen at home presents with her in the chief complaint of multiple symptoms presenting and worsening over the course of the day. She has had mid upper abdominal pain with radiation to her back as well as multiple episodes of nausea and vomiting. She started developing fever and shaking chills over the course of the day and along with this had increasing work of breathing and had to use her oxygen. There is no obvious palliation of her pain but it is worse when she moves. She is sharp and stabbing and at times quite intense. She denies any change in her bowel habits and has no dysuria, frequency or urgency. Related Data Home Medications Medication Instructions Recorded Confirmed albuterol sulfate 90 mcg/actuation 1 puff INH Q4H PRN Shortness Of 05/19/17 05/22/19 aerosol inhaler (Proventil HFA) Breath ##0 montelukast 10 mg tablet 10 mg PO QPM ##0 05/19/17 05/22/19 Glucosamine 1 tab PO DAILY 03/07/18 05/22/19 loratadine 10 mg tablet 10 mg PO QPM 03/07/18 05/22/19 (Allerclear) tiotropium bromide 2.5 2 puff inhalation DAILY 05/22/19 05/22/19 mcg/actuation mist for inhalation (Spiriva Respimat) Previous Rx's Medication Instructions Recorded budesonide-formoterol HFA 160 2 inhalation inhalation BID #10.2 01/28/18 mcg-4.5 mcg/actuation aerosol grams inhaler (Symbicort) simvastatin 40 mg tablet 40 mg PO BEDTIME #90 tabs 04/22/19 losartan 25 mg tablet (Cozaar) 25 mg PO DAILY #90 tabs 04/24/19 cephalexin 500 mg capsule 500 mg PO BID #14 caps 05/20/22 Allergies Allergy/AdvReac Type Severity Reaction Status Date / Time No Known Drug Allergies Allergy Verified 10/29/22 20:04 Review of Systems Review of Systems Narrative: GENERAL: See HPI HEENT: Denies sinus pain, ear pain, sore throat, difficulty swallowing, dizziness. RESPIRATORY: See HPI CARDIOVASCULAR: Denies chest pain, palpitations, orthopnea, edema, GASTROINTESTINAL see HPI : Denies dysuria, frequency, incontinence, hematuria, urinary retention. MUSCULOSKELETAL: denies weakness, joint pain, or bony pain SKIN: Denies rash, skin lesions, or other NEUROLOGIC: Denies weakness, headache, numbness, change in speech, confusion, seizures, incoordination. PSYCHIATRIC: No concerning psychosocial issues. 12 point review of systems is negative except for those stated above Patient History Medical History (Updated 10/30/22 @ 03:41 by Denzel Aj DO) Asthma Hayfever Hip pain Hyperlipidemia (2013) Osteopenia (2005) Sleep apnea (2012) Surgical History Anesthesia History of cataract surgery (2011) History of section (1972) History of section (1975) History of incision and drainage (11/2016) Family History Father Heart disease Alcoholism Mother Heart disease Emphysema of lung Brother Morbid obesity Diabetes mellitus Heart disease Hypertension Hyperlipidemia Sister Breast cancer Grandfather Lung disease Grandmother Heart disease Grandfather No problems noted. Grandmother No problems noted. Daughter No problems noted. Daughter No problems noted. Social History Smoking Status: Never smoker Tobacco: How many years used: 35 alcohol intake: never substance use type: does not use Smoking Status: Never smoker alcohol intake frequency: 0-2 drinks per day Substance Use Type: does not use Exam Narrative Exam Narrative: GENERAL: [77] year old patient appears stated age. Well-developed patient, in obvious distress, obviously in pain, rigors HEAD: Atraumatic. Normocephalic. EYES: Pupils equal round and reactive. Extraocular motions intact. No scleral icterus. No injection or drainage. ENT: Nose without bleeding, purulent drainage. Throat without erythema, tonsillar hypertrophy or exudate. Airway patent. NECK: Trachea midline. Non tender CARDIOVASCULAR: Tachycardic but regular rhythm without murmurs, gallops, or rubs. RESPIRATORY: Clear to auscultation. Breath sounds equal bilaterally. No wheezes, rales, or rhonchi. GASTROINTESTINAL: Abdomen soft, tender in the epigastrium, nondistended. EXTREMITIES: No edema or joint tenderness. BACK: Nontender without deformity or crepitance. No flank tenderness. NEURO: AOx3. SKIN: No rash or erythema of visible areas Initial Vital Signs Initial Vital Signs: Vital Signs Temperature 98.5 F 10/29/22 20:00 Pulse Rate 118 H 10/29/22 20:00 Respiratory Rate 22 10/29/22 20:00 Blood Pressure 155/72 H 10/29/22 20:00 Pulse Oximetry 97 10/29/22 20:00 Oxygen Delivery Method Room Air 10/29/22 20:00 Course Orders Ordered: ED Orders 10/29/22 20:05 EKG-12 Lead Routine 10/29/22 20:17 Complete Blood Count AUTO DIFF Stat Comprehensive Metabolic Panel Stat D Dimer Stat Lactate (Lactic Acid) Stat Lipase Stat PTT Partial Thromboplastin Huang Stat Procalcitonin Stat Prothrombin Time INR Stat 10/29/22 20:20 XR chest 1V Stat RT Consult Eval and Treat NOW 10/29/22 21:02 CT abdomen pelvis w con Stat 10/29/22 21:49 Blood Culture Stat 10/29/22 22:07 Respiratory Panel (Film Array) Stat 10/29/22 23:24 CT angio chest PE protocol Stat 10/29/22 23:27 Urine Culture Stat Urine Microscopic Stat Ondansetron HCl (Ondansetron 4 Mg Odt) 4 mg SL NOW PRN PRN Reason: Nausea And Vomiting Discontinued Medications Hydromorphone HCl (Hydromorphone 0.5 Mg Inj) 0.5 mg IV NOW ONE Stop: 10/29/22 21:04 Last Admin: 10/29/22 21:45 Dose: 0.5 mg Documented By: DEREK Sodium Chloride (Normal Saline 0.9%) 2,313.33 mls @ 771.11 mls/hr 30 ml/kg infuse over 3 hr (2313.33 ml) IV NOW ONE Stop: 10/29/22 23:26 Last Infusion: 10/29/22 23:45 Dose: 0 mls/hr Documented By: Admin: 10/29/22 20:35 Dose: 771.11 mls/hr Documented By: DEREK Piperacillin Sod/Tazobactam (Sod 4.5 gm/ Sodium Chloride) 100 mls @ 200 mls/hr IV NOW ONE Stop: 10/29/22 21:04 Last Infusion: 10/29/22 22:33 Dose: 0 mls/hr Documented By: Admin: 10/29/22 21:56 Dose: 200 mls/hr Documented By: DEREK Piperacillin Sod/Tazobactam (Sod 4.5 gm/ Sodium Chloride) 100 mls @ 200 mls/hr IV NOW ONE Stop: 10/29/22 23:12 Last Admin: 10/29/22 23:24 Dose: Not Given Documented By: RL Piperacillin Sod/Tazobactam (Sod 3.375 gm/ Sodium Chloride) 100 mls @ 25 mls/hr IV NOW ONE Stop: 10/29/22 23:13 Last Admin: 10/29/22 23:25 Dose: 25 mls/hr Documented By: DEREK Ondansetron HCl (Ondansetron 4 Mg/2 Ml Inj) 4 mg IV NOW PRN PRN Reason: Nausea And Vomiting Last Admin: 10/29/22 20:25 Dose: 4 mg Documented By: DEREK Consultations Consultation #1: ace to Dr. Garcia - after discussion of clinical course we are quick to agree she needs transfer for ERCP Vital Signs Vital signs: Vital Signs - 8 hr 10/29/22 20:23 10/29/22 20:25 10/29/22 20:25 Temperature Pulse Rate 124 H 122 H Respiratory Rate 23 50 H Blood Pressure 167/74 H Pulse Oximetry 87 L 93 Oxygen Delivery Method Nasal Cannula Oxygen Flow Rate 1.5 10/29/22 20:30 10/29/22 20:30 10/29/22 20:46 Temperature Pulse Rate 121 H 126 H Respiratory Rate 37 H 49 H Blood Pressure 159/73 H Pulse Oximetry 92 96 Oxygen Delivery Method Oxygen Flow Rate 1.5 10/29/22 20:46 10/29/22 21:00 10/29/22 21:38 Temperature Pulse Rate 127 H 124 H Respiratory Rate 39 H Blood Pressure 139/76 Pulse Oximetry 95 94 Oxygen Delivery Method Nasal Cannula Oxygen Flow Rate 1.5 10/29/22 22:00 10/29/22 22:02 10/29/22 22:02 Temperature 100.4 F H Pulse Rate 118 H 120 H Respiratory Rate 31 H 27 H Blood Pressure 132/61 Pulse Oximetry 95 95 Oxygen Delivery Method Nasal Cannula Oxygen Flow Rate 1.5 10/29/22 22:15 10/29/22 22:15 10/29/22 22:30 Temperature Pulse Rate 116 H Respiratory Rate 39 H Blood Pressure 129/60 113/56 L Pulse Oximetry 96 Oxygen Delivery Method Oxygen Flow Rate 10/29/22 22:30 10/29/22 22:45 10/29/22 22:45 Temperature Pulse Rate 116 H 118 H Respiratory Rate 32 H 29 H Blood Pressure 118/58 L Pulse Oximetry 93 94 Oxygen Delivery Method Oxygen Flow Rate 10/29/22 23:00 10/29/22 23:00 10/29/22 23:21 Temperature Pulse Rate 115 H 118 H Respiratory Rate 18 44 H Blood Pressure 121/56 L Pulse Oximetry 94 98 Oxygen Delivery Method Oxygen Flow Rate 10/29/22 23:21 10/29/22 23:30 10/29/22 23:30 Temperature Pulse Rate 116 H Respiratory Rate 35 H Blood Pressure 139/65 125/60 Pulse Oximetry 97 Oxygen Delivery Method Oxygen Flow Rate 10/29/22 23:57 10/29/22 23:57 10/30/22 00:00 Temperature Pulse Rate 109 H 109 H Respiratory Rate Blood Pressure 115/68 Pulse Oximetry 97 99 Oxygen Delivery Method Oxygen Flow Rate 10/30/22 00:30 10/30/22 01:00 10/30/22 01:30 Temperature Pulse Rate 113 H 105 H 107 H Respiratory Rate 20 19 20 Blood Pressure Pulse Oximetry 99 99 95 Oxygen Delivery Method Oxygen Flow Rate 1.5 10/30/22 02:00 10/30/22 02:30 10/30/22 02:34 Temperature 98.2 F Pulse Rate 109 H 112 H 107 H Respiratory Rate 23 36 H Blood Pressure Pulse Oximetry 94 94 93 Oxygen Delivery Method Room Air Oxygen Flow Rate 10/30/22 02:34 10/30/22 02:45 10/30/22 02:45 Temperature Pulse Rate 109 H Respiratory Rate 45 H Blood Pressure 131/56 L 123/46 L Pulse Oximetry 92 Oxygen Delivery Method Oxygen Flow Rate 10/30/22 03:00 10/30/22 03:00 10/30/22 03:15 Temperature Pulse Rate 108 H 109 H Respiratory Rate 44 H 41 H Blood Pressure 113/56 L Pulse Oximetry 93 92 Oxygen Delivery Method Oxygen Flow Rate 10/30/22 03:15 08/08/23 03:30 10/30/22 03:30 Temperature Pulse Rate 111 H Respiratory Rate 51 H Blood Pressure 113/56 L 107/50 L Pulse Oximetry 91 Oxygen Delivery Method Nasal Cannula Oxygen Flow Rate 1.5 10/30/22 03:45 10/30/22 03:45 10/30/22 04:00 Temperature Pulse Rate 108 H Respiratory Rate 46 H Blood Pressure 115/54 L 112/59 L Pulse Oximetry 96 Oxygen Delivery Method Oxygen Flow Rate 10/30/22 04:00 Temperature Pulse Rate 106 H Respiratory Rate 33 H Blood Pressure Pulse Oximetry 96 Oxygen Delivery Method Oxygen Flow Rate MDM - Chest Pain Lab Data 10/29/22 20:17 10/29/22 20:17 Labs: Lab Results 10/29/22 10/29/22 10/29/22 Range/Units 20:17 20:17 20:17 WBC 13.8 H (4.5-11.0) X10^3/uL RBC 4.41 (4.0-5.2) X10^6/uL Hgb 13.1 (12.0-16.0) g/dL Hct 39.7 (36-46) % MCV 90.2 (80-100) fL MCH 29.7 (26-34) PG MCHC 32.9 (30-36) % RDW 13.5 (11.6-14.8) % Plt Count 238 (150-400) X10^3/uL Neut % (Auto) 86.2 H (50-75) % Lymph % (Auto) 10.7 L (25-40) % Vernon % (Auto) 2.5 L (3-14) % Eos % (Auto) 0.2 L (2-4) % Baso % (Auto) 0.4 (0-2) % Neut # (Auto) 24517 H (7803-5496) /uL Lymph # (Auto) 1500 (5940-1579) /uL Vernon # (Auto) 300 (0-900) /uL Eos # (Auto) 0 (0-450) /uL Baso # (Auto) 100 (0-100) /uL PT 10.9 (10.1-12.7) SECONDS INR 1.0 (0.9-1.3) APTT 30 (26-36) SECONDS D-Dimer (<500) ng/ml Sodium 137 (137-145) mmol/L Potassium 4.1 (3.4-5.1) mmol/L Chloride 100 (98-107) mmol/L Carbon Dioxide 30 (22-32) mmol/L BUN 18 H (7-17) mg/dL Creatinine 0.80 (0.52-1.04) mg/dL Estimated GFR > 60 (>60) mL/min BUN/Creatinine Ratio 22.5 H (6-22) Glucose 145 H (80-110) mg/dL Lactate (0.7-2.1) mmol/L Calcium 9.7 (8.4-10.2) mg/dL Total Bilirubin 1.7 H (0.2-1.3) mg/dL AST 620 H (14-36) IU/L ALT 387 H (<35) IU/L Alkaline Phosphatase 156 H (38-126) U/L Total Protein 7.8 (6.3-8.2) g/dL Albumin 4.5 (3.5-5.0) g/dL Globulin 3.3 (1.7-4.1) g/dL Albumin/Globulin Ratio 1.4 (1.0-2.8) Lipase 3272 H (23-300) U/L Procalcitonin 0.17 (<0.5) ng/mL Urine RBC (0-5/HPF) Urine WBC (0-5/HPF) Ur Squamous Epith Cells (0-5/HPF) Urine Bacteria (None) Ur Culture Indicated? Chlamy pneumoniae PCR (Not Detect) Adenovirus (PCR) (Not Detect) B. pertussis DNA (PCR) (Not Detecte) B.parapertussis DNA PCR (Not Detecte) Coronavirus OC43 (PCR) (Not Detect) Coronavirus HKU1 (PCR) (Not Detect) Coronavirus 229E (PCR) (Not Detect) SARS-CoV-2 (PCR) (Not Detecte) Coronavirus NL63 (PCR) (Not Detect) Human Metapneumovir PCR (Not Detect) Influenza Type A (PCR) (Not Detect) Influenza Type B (PCR) (Not Detect) M. pneumoniae (PCR) (Not Detect) Parainfluenza 1 (PCR) (Not Detect) Parainfluenza 2 (PCR) (Not Detect) Parainfluenza 3 (PCR) (Not Detect) Parainfluenza 4 (PCR) (Not Detect) RSV (PCR) (Not Detect) Entero/Rhino (PCR) (Not Detect) 10/29/22 10/29/22 10/29/22 Range/Units 20:17 20:17 22:07 WBC (4.5-11.0) X10^3/uL RBC (4.0-5.2) X10^6/uL Hgb (12.0-16.0) g/dL Hct (36-46) % MCV (80-100) fL MCH (26-34) PG MCHC (30-36) % RDW (11.6-14.8) % Plt Count (150-400) X10^3/uL Neut % (Auto) (50-75) % Lymph % (Auto) (25-40) % Vernon % (Auto) (3-14) % Eos % (Auto) (2-4) % Baso % (Auto) (0-2) % Neut # (Auto) (3510-6868) /uL Lymph # (Auto) (6924-8628) /uL Vernon # (Auto) (0-900) /uL Eos # (Auto) (0-450) /uL Baso # (Auto) (0-100) /uL PT (10.1-12.7) SECONDS INR (0.9-1.3) APTT (26-36) SECONDS D-Dimer 1096 H (<500) ng/ml Sodium (137-145) mmol/L Potassium (3.4-5.1) mmol/L Chloride (98-107) mmol/L Carbon Dioxide (22-32) mmol/L BUN (7-17) mg/dL Creatinine (0.52-1.04) mg/dL Estimated GFR (>60) mL/min BUN/Creatinine Ratio (6-22) Glucose (80-110) mg/dL Lactate 1.7 (0.7-2.1) mmol/L Calcium (8.4-10.2) mg/dL Total Bilirubin (0.2-1.3) mg/dL AST (14-36) IU/L ALT (<35) IU/L Alkaline Phosphatase (38-126) U/L Total Protein (6.3-8.2) g/dL Albumin (3.5-5.0) g/dL Globulin (1.7-4.1) g/dL Albumin/Globulin Ratio (1.0-2.8) Lipase (23-300) U/L Procalcitonin (<0.5) ng/mL Urine RBC (0-5/HPF) Urine WBC (0-5/HPF) Ur Squamous Epith Cells (0-5/HPF) Urine Bacteria (None) Ur Culture Indicated? Chlamy pneumoniae PCR Not detected (Not Detect) Adenovirus (PCR) Not detected (Not Detect) B. pertussis DNA (PCR) Not detected (Not Detecte) B.parapertussis DNA PCR Not detected (Not Detecte) Coronavirus OC43 (PCR) Not detected (Not Detect) Coronavirus HKU1 (PCR) Not detected (Not Detect) Coronavirus 229E (PCR) Not detected (Not Detect) SARS-CoV-2 (PCR) Not detected (Not Detecte) Coronavirus NL63 (PCR) Not detected (Not Detect) Human Metapneumovir PCR Not detected (Not Detect) Influenza Type A (PCR) Not detected (Not Detect) Influenza Type B (PCR) Not detected (Not Detect) M. pneumoniae (PCR) Not detected (Not Detect) Parainfluenza 1 (PCR) Not detected (Not Detect) Parainfluenza 2 (PCR) Not detected (Not Detect) Parainfluenza 3 (PCR) Not detected (Not Detect) Parainfluenza 4 (PCR) Not detected (Not Detect) RSV (PCR) Not detected (Not Detect) Entero/Rhino (PCR) Not detected (Not Detect) 10/29/22 Range/Units 23:27 WBC (4.5-11.0) X10^3/uL RBC (4.0-5.2) X10^6/uL Hgb (12.0-16.0) g/dL Hct (36-46) % MCV (80-100) fL MCH (26-34) PG MCHC (30-36) % RDW (11.6-14.8) % Plt Count (150-400) X10^3/uL Neut % (Auto) (50-75) % Lymph % (Auto) (25-40) % Vernon % (Auto) (3-14) % Eos % (Auto) (2-4) % Baso % (Auto) (0-2) % Neut # (Auto) (5704-4577) /uL Lymph # (Auto) (3108-0860) /uL Vernon # (Auto) (0-900) /uL Eos # (Auto) (0-450) /uL Baso # (Auto) (0-100) /uL PT (10.1-12.7) SECONDS INR (0.9-1.3) APTT (26-36) SECONDS D-Dimer (<500) ng/ml Sodium (137-145) mmol/L Potassium (3.4-5.1) mmol/L Chloride (98-107) mmol/L Carbon Dioxide (22-32) mmol/L BUN (7-17) mg/dL Creatinine (0.52-1.04) mg/dL Estimated GFR (>60) mL/min BUN/Creatinine Ratio (6-22) Glucose (80-110) mg/dL Lactate (0.7-2.1) mmol/L Calcium (8.4-10.2) mg/dL Total Bilirubin (0.2-1.3) mg/dL AST (14-36) IU/L ALT (<35) IU/L Alkaline Phosphatase (38-126) U/L Total Protein (6.3-8.2) g/dL Albumin (3.5-5.0) g/dL Globulin (1.7-4.1) g/dL Albumin/Globulin Ratio (1.0-2.8) Lipase (23-300) U/L Procalcitonin (<0.5) ng/mL Urine RBC 1-5/hpf (0-5/HPF) Urine WBC 0-1/hpf (0-5/HPF) Ur Squamous Epith Cells 1-5 /hpf (0-5/HPF) Urine Bacteria Occasional (0-1) (None) Ur Culture Indicated? Specimen cultured Chlamy pneumoniae PCR (Not Detect) Adenovirus (PCR) (Not Detect) B. pertussis DNA (PCR) (Not Detecte) B.parapertussis DNA PCR (Not Detecte) Coronavirus OC43 (PCR) (Not Detect) Coronavirus HKU1 (PCR) (Not Detect) Coronavirus 229E (PCR) (Not Detect) SARS-CoV-2 (PCR) (Not Detecte) Coronavirus NL63 (PCR) (Not Detect) Human Metapneumovir PCR (Not Detect) Influenza Type A (PCR) (Not Detect) Influenza Type B (PCR) (Not Detect) M. pneumoniae (PCR) (Not Detect) Parainfluenza 1 (PCR) (Not Detect) Parainfluenza 2 (PCR) (Not Detect) Parainfluenza 3 (PCR) (Not Detect) Parainfluenza 4 (PCR) (Not Detect) RSV (PCR) (Not Detect) Entero/Rhino (PCR) (Not Detect) Urine Dip Bedside Urine Glucose Negative Bedside Urine Bilirubin - Negative Bedside Urine Ketone - Negative Urine Specific [place] 1.010 Bedside Urine Occult Blood ++ Bedside Urine pH 6.0 Bedside Urine Protein - Negative Bedside Urine Urobilinogen - Negative Bedside Urine Nitrite - Negative Bedside Urine Leukocytes + 70 Esterase MDM Narrative Medical decision making narrative: CC: 77-year-old female with abdominal pain, nausea and vomiting Complicating co-morbidities: Age, asthma Data collected from: Patient Medical records reviewed: Prior notes reviewed in our EMR Differential considered, but not limited to: Pancreatitis versus gallbladder disease versus bowel obstruction versus pneumonia versus pulmonary embolism versus other Exam documented above, pertinent findings include: Tachycardic, severe epigastric pain, lungs clear and nonlabored Lab Test results independently reviewed as above. Pertinent findings: WBC 13.8 with relative left shift, lactate 1.7, primarily electrolytes within normal limits, creatinine 0.8, bilirubin 1.7, AST 620, ALT 387, alk-phos 156, lipase 3272, procalcitonin 0.17, D-dimer 1096 Independently reviewed EKG as above Imaging studies independently reviewed: CTA of chest no PE but with a lobulated right lower lobe nodule extending into the medial pleura suspicious for neoplasm. 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 CT of abdomen and pelvis demonstrates cholelithiasis and biliary ductal dilatation with probable small obstructing ampullary stone, common bile duct measuring up to 1.2 cm no pancreatic mass noted Consultations: call to [facility] - GI can't perform ERCP call [facility] - on list call to - no beds call to [facility] - on list call to - took information, will page hospitalist. Dr Suárez happy to accept Treatments: Sepsis saline at 30 cc/kilogram, ondansetron, morphine, Zosyn Re-evaluations: Pain improved, rigors resolved, work of breathing and tachycardia all improving with above-stated therapies Discussion: 77-year-old patient presents with abdominal pain, radiation to her back, fever, shaking chills and is found to have elevated LFTs, bilirubin and lipase. Patient's pain is controlled, septic protocol employed with 30 cc/kilogram of IV fluids, blood cultures, lactate and early antibiotics. Imaging demonstrates a calcification at the ampulla with dilated common bile duct. Vital signs improve with fluid resuscitation and pain control, patient requires transfer to higher level care for likely ERCP to address ascending cholangitis, gallstone pancreatitis Critical Care Time Critical Care Time Critical Care Time: Yes Total Critical Care Time: 45 Attestation: The high probability of a clinically significant, sudden or life threatening deterioration of the GI] system(s) required my full and direct attention, intervention and personal management. The aggregate critical care time was [45] minutes. This time is in addition to time spent performing reported procedures but includes the following: [x] Data Review and interpretation []x Patient assessment and monitoring of vital signs [x] Documentation [x] Medication orders and management Discharge Plan Departure Patient Disposition: [facility] Clinical Impression: Ascending cholangitis, Acute gallstone pancreatitis, Sepsis Prescriptions: No Action montelukast 10 MG tablet 10 mg PO QPM Qty: 0 albuterol sulfate [Proventil HFA] 90 MCG/PUFF HFA aerosol inhaler 1 puff INH Q4H PRN (Reason: Shortness Of Breath) Qty: 0 budesonide-formoterol [Symbicort] 160-4.5 mcg/actuation HFA aerosol inhaler 2 inhalation INHALATION BID Qty: 10.2 2RF simvastatin 40 mg tablet 40 mg PO BEDTIME Qty: 90 3RF losartan [Cozaar] 25 mg tablet 25 mg PO DAILY Qty: 90 3RF Spiriva Respimat 2.5 mcg/actuation mist 2 puff INHALATION DAILY loratadine [Allerclear] 10 mg Tablet 10 mg PO QPM Glucosamine 1 tab PO DAILY cephalexin 500 mg capsule 500 mg PO BID Qty: 14 0RF Referrals: Osman Bahena, [Primary Care Provider] -
[2022-10-29 20:29] LABS: Add Manual Diff / Slide Review NO; Basophils Absolute Auto 100 /uL (0-100); Basophils Percent Auto 0.4 % (0-2); Eosinophils Absolute Auto 0 /uL (0-450); Eosinophils Percent Auto 0.2 % (2-4); Hematocrit 39.7 % (36-46); Hemoglobin 13.1 g/dL (12.0-16.0); Lymphocytes Absolute Auto 1500 /uL (1100-4500); Lymphocytes Percent Auto 10.7 % (25-40); Mean Corpuscular HGB Conc 32.9 % (30-36); Mean Corpuscular Hemoglobin 29.7 PG (26-34); Mean Corpuscular Volume 90.2 fL (80-100); Monocytes Absolute Auto 300 /uL (0-900); Monocytes Percent Auto 2.5 % (3-14); Neutrophils Absolute Auto 11900 /uL (1500-7000); Neutrophils Percent Auto 86.2 % (50-75); Platelet Count 238 X10^3/uL (150-400); Red Blood Cell Count 4.41 X10^6/uL (4.0-5.2); Red Cell Distribution Width 13.5 % (11.6-14.8); White Blood Cell Count 13.8 X10^3/uL (4.5-11.0)
[2022-10-29] MEDS: SODIUM CHLORIDE 0.9% 2,313.33 ML 771.11 ML IV (20:35)
[2022-10-29 20:36] LABS: Prothrombin Time 10.9 SECONDS (10.1-12.7)
[2022-10-29 20:39] LABS: Lactate (Lactic Acid) 1.7 mmol/L (0.7-2.1); PTT Partial Thromboplastin Tim 30 SECONDS (26-36)
[2022-10-29 20:40] LABS: Alanine Aminotransferase 387 IU/L (<35); Albumin 4.5 g/dL (3.5-5.0); Albumin Globulin Ratio 1.4 (1.0-2.8); Alkaline Phosphatase 156 U/L (38-126); Aspartate Aminotransferase 620 IU/L (14-36); BUN Creatinine Ratio 22.5 (6-22); Bilirubin Total 1.7 mg/dL (0.2-1.3); Blood Urea Nitrogen 18 mg/dL (7-17); Calcium 9.7 mg/dL (8.4-10.2); Carbon Dioxide 30 mmol/L (22-32); Chloride 100 mmol/L (98-107); Estimated Glomerular Filt Rate > 60 mL/min (>60); Globulin 3.3 g/dL (1.7-4.1); Glucose 145 mg/dL (80-110); HEMOLYSIS 18 (0-50); Potassium 4.1 mmol/L (3.4-5.1); Sodium 137 mmol/L (137-145); Total Protein 7.8 g/dL (6.3-8.2)
[2022-10-29 20:50] LABS: Lipase 3272 U/L (23-300)
--- NOTE | 2022-10-29 20:52 | PC.NURSE ---
Reports history of lung nodules with biopsy's and not growing size.
[2022-10-29 20:57] LABS: Procalcitonin 0.17 ng/mL (<0.5)
--- NOTE | 2022-10-29 21:02 | DI.CT.S_ITS ---
PROCEDURE: CT ABDOMEN PELVIS W CON INDICATIONS: severe epigastric pain, radiation to back TECHNIQUE: After the administration of IV contrast, axial sections were acquired from the lung bases to the pubic symphysis. Coronal and sagittal reformats were performed. For radiation dose reduction, the following was used: automated exposure control, adjustment of mA and/or kV according to patient size. COMPARISON: None. FINDINGS: Image quality: Excellent. Lung bases: Medially within the right lower lobe, there is a lobulated nodule measuring up to 2.5 cm with extension to the medial pleura. Heart: Heart is normal in size. ABDOMEN: Liver: No mass lesion. Gallbladder: Multiple calcified gallstones are demonstrated in the gallbladder. No wall thickening or pericholecystic fluid. Biliary ducts: There is intra and extrahepatic biliary ductal dilatation, with the common bile duct measuring up to approximately 1.2 cm. There is a calcification in the ampulla of Vater measuring 0.3 cm suggestive of an obstructing ampullary stone. Pancreas: No pancreatic duct dilatation. No discrete pancreatic mass identified. Spleen: Normal in size. Adrenal Glands: No adrenal nodules. Kidneys and Ureters: No hydronephrosis. Stomach and Bowel: Stomach, small bowel loops, and colon are normal in caliber and wall thickness. No evidence of appendicitis. There is diverticulosis throughout the colon without acute diverticulitis. Peritoneum: No abnormal intraperitoneal fluid. No free air. Ventral Wall: No hernia. Abdominal Nodes: No retroperitoneal or mesenteric adenopathy by size criteria. Vessels: Aorta and inferior vena cava are normal in size. PELVIS: Pelvic Organs: Unremarkable. Bladder: Unremarkable. Pelvic Nodes: No enlarged lymph nodes. Miscellaneous: No inguinal hernias are seen. Bones: Visualized osseous structures demonstrate no suspicious focal lesions. IMPRESSION: 1. Cholelithiasis and biliary ductal dilatation with a probable small obstructing ampullary stone. 2. Lobulated nodule in the right lower lobe measuring up to 2.5 cm highly suspicious for a neoplasm. Recommend further evaluation with PET-CT or percutaneous biopsy. Dictated by: Chris Warren M.D. on 10/29/2022 at 22:45 Approved by: Chris Warren M.D. on 10/29/2022 at 22:49
[2022-10-29 21:20] LABS: D Dimer 1096 ng/ml (<500)
--- NOTE | 2022-10-29 21:24 | PC.NURSE ---
Lab attempted to draws and unable to get second set of cultures. Pt at CT then will try US guided IV.
[2022-10-29] MEDS: HYDROMORPHONE 0.5 MG INJ IV (21:45)
[2022-10-29] MEDS: PIPERACILLIN/TAZO 4.5 GM in SODIUM CHLORIDE 0.9% 100 ML IV (21:56)
--- NOTE | 2022-10-29 22:34 | PC.NURSE ---
Pt reports leaking around IV site. MIKE Horne went in to investigate. Hub was not fully tightened and patient's clothing wet nearby IV. Provider made aware that antibiotic appears to have not infused and leaked out at the hub site. Pt denies pain, tenderness, redness at IV site.
[2022-10-29 23:18] LABS: Adenovirus Not Detected (Not Detect); B. parapertussis Not Detected (Not Detecte); Bordetella pertussis Not Detected (Not Detecte); Chlamydophila pneumoniae Not Detected (Not Detect); Coronavirus 229E Not Detected (Not Detect); Coronavirus HKU1 Not Detected (Not Detect); Coronavirus NL 63 Not Detected (Not Detect); Coronavirus OC43 Not Detected (Not Detect); Human Metapneumovirus Not Detected (Not Detect); Human Rhinovirus/Enterovirus Not Detected (Not Detect); Influenza A Not Detected (Not Detect); Influenza B Not Detected (Not Detect); Mycoplasma pneumoniae Not Detected (Not Detect); Parainfluenza Virus 1 Not Detected (Not Detect); Parainfluenza Virus 2 Not Detected (Not Detect); Parainfluenza Virus 3 Not Detected (Not Detect); Parainfluenza Virus 4 Not Detected (Not Detect); Respiratory Syncytial Virus Not Detected (Not Detect); SARS- CoV-2 Not Detected (Not Detecte)
--- NOTE | 2022-10-29 23:24 | DI.CT.S_ITS ---
PROCEDURE: CT ANGIO CHEST PE PROTOCOL INDICATIONS: chest pain, SOB, hypoxia, tachy, critical dimer TECHNIQUE: After the administration of intravenous contrast, 2 mm thick sections acquired from the pulmonary apices to the posterior costophrenic angles. 3-dimensional maximum intensity projection (MIP) coronal and sagittal reformats were then acquired through the thorax. For radiation dose reduction, the following was used: automated exposure control, adjustment of mA and/or kV according to patient size. COMPARISON: [facility], US, US FINE NEEDLE ASPIRATION THYROID, 05/05/2021, 13:44. [facility], US, US THYROID, 04/06/2021, 12:54. [facility], CT, CT ABDOMEN PELVIS W CON, 10/29/2022, 21:18. FINDINGS: Image quality: Excellent. Pulmonary arteries: Pulmonary arteries are normal in size, and demonstrate no intraluminal filling defects to suggest central pulmonary embolism. Lower Neck: No lymphadenopathy by size criteria. Thyroid: There is a peripherally enhancing left thyroid nodule measuring up to approximately 2.2 cm. Axillae: No lymphadenopathy by size criteria. Chest Wall: Unremarkable. Bones: Visualized osseous structures demonstrate no suspicious lesions. Lungs and Airways: Medially within the right lower lobe, there is a lobulated nodule measuring up to 2.5 cm as seen on series 5, image 159. This extends to the pleura medially. Peripherally within the right upper lobe, there is a small subpleural nodule measuring 0.5 cm on series 5, image 119. Mild dependent atelectasis and scarring are demonstrated. No acute consolidation. The trachea and central airways are patent. Pleura: No pneumothorax or pleural effusions. Heart: Heart size is normal. No pericardial effusion. Thoracic Vessels: The thoracic aorta is normal in size. Mediastinum and Joanne: No lymphadenopathy by size criteria. Esophagus: No wall thickening. No hiatal hernia. Abdomen: Visualized upper abdomen is unremarkable. IMPRESSION: 1. Lobulated right lower lobe nodule extending to the medial pleura is again suspicious for a neoplasm. Recommend further evaluation with PET-CT or percutaneous biopsy. 2. Smaller peripheral right upper lobe 0.5 cm nodule. Recommend attention on follow-up. 3. Left thyroid nodule measuring up to 2.2 cm. This corresponds to a previously biopsied nodule from 05/05/2021. Dictated by: Chris Warren M.D. on 10/30/2022 at 1:27 Approved by: Chris Warren M.D. on 10/30/2022 at 1:33
[2022-10-29] MEDS: PIPERACILLIN/TAZO 3.375 GM in SODIUM CHLORIDE 0.9% 100 ML IV (23:25)
[2022-10-29 23:42] LABS: Bacteria Urine Occasional (0-1); RBC Urine 1-5/HPF (0-5/HPF); Squamous Epithelial Cell Urine 1-5 /HPF (0-5/HPF); WBC Urine 0-1/HPF (0-5/HPF)
[2022-10-29 23:43] LABS: Culture Indicated Urine Specimen Cultured
[2022-10-30] VITALS (13 sets, daily range): BP systolic 107–131; BP diastolic 46–59; PULSE 105–113; RESP 19–51; TEMP 36.8; O2SAT 91–99
--- NOTE | 2022-10-30 01:20 | PC.NURSE ---
Pt reports using Bi-pap at home.
--- NOTE | 2022-10-30 02:50 | PC.NURSE ---
Patient c/o shakes and has visible rigors. Provider requesting updated vitals including temp. Patient remains afebrile. Encouraged patient to continue used mouth swabs and gave her lip moisturizer and wet wash cloth. Boosted patient in bed and adjusted bed for comfort. Patient voiced future toileting needs, educated patient that a bedside commode will be brought in.
[2022-10-30] MEDS: HYDROMORPHONE 0.5 MG INJ IV (05:14)
== END 2022-10-30 05:23 | disposition short-term general hospital (02) ==
PROVIDERS: Emergency Provider Emergency Medicine; PCP Student in an Organized Health Care Education/Training Program
DX: K85.10 Biliary acute pancreatitis without necrosis or infection (principal); K83.09 Other cholangitis; A41.9 Sepsis, unspecified organism; R11.2 Nausea with vomiting, unspecified; Z20.822 Contact with and (suspected) exposure to COVID-19; R03.0 Elevated blood-pressure reading, without diagnosis of hypertension
CPT/HCPCS: 36415; 71045; 71275; 74177; 80053; 81003; 81015; 83605; 83690; 84145; 85025; 85379; 85610; 85730; 87040; 87086; 87633; 93005; 93010; 96365; 96366; 96375; 96376; 99285; 99291; J1170; J2405; J2543; Q9967

== ENCOUNTER 2024-07-13 18:27 | Emergency (ER) | payer MEDICARE, OTHER, SELFPAY ==
[2018-06-17 09:26] VITALS: BMI 24.0; BMI 28.3
[2024-07-13] VITALS (14 sets, daily range): BP systolic 157–199; BP diastolic 62–90; PULSE 70–82; RESP 16–18; TEMP 36.6; O2SAT 90–95; BMI 29.9
--- NOTE | 2024-07-13 18:38 | DI.CT.S_ITS ---
PROCEDURE: CT HEAD/BRAIN WO CON INDICATIONS: sudden onset dizziness, nausea/vomiting TECHNIQUE: Noncontrast 4.5 mm thick angled axial sections acquired from the foramen magnum to the vertex, with coronal and sagittal reformats. For radiation dose reduction, the following was used: automated exposure control, adjustment of mA and/or kV according to patient size. COMPARISON: None. FINDINGS: Image quality: Diagnostic. CSF spaces: Basal cisterns are patent. No extra-axial fluid collections. The ventricles are symmetric in size and shape. Brain: No intracranial bleeds or mass effect. There is cerebral volume loss, with resultant ventricular and sulcal prominence. There are periventricular and deep white matter chronic small vessel ischemic changes. There is intracranial internal carotid artery atherosclerosis. Skull and face: Calvarium and visualized facial bones appear intact, without suspicious lesions. Sinuses: Visualized sinuses and mastoids are clear. IMPRESSION: No acute intracranial pathology. Dictated by: Fausto Paulino M.D. on 07/13/2024 at 19:01 Approved by: Fausto Paulino M.D. on 07/13/2024 at 19:01
--- NOTE | 2024-07-13 19:02 | EKG_ITS ---
[address] [address] [address] [address] Test Date: 2024-07-13 Pat Name: Pita Kauffman Department: [facility] Room: Gender: Female Endocrinology Physician: ALTON : 1945 Requested By: Order Number: [id number] Reading MD: Go Campos MD Measurements Intervals [place] Rate: 70 P: 59 CA: 138 QRS: 70 QRSD: 88 T: 54 QT: 420 QTc: 453 Interpretive Statements Normal sinus rhythm Electronically Signed On 07-14-2024 6:40:27 PDT by Go Campos MD
[2024-07-13] MEDS: ONDANSETRON 4 MG ODT SL (19:13)
[2024-07-13] MEDS: diphenhydrAMINE 50 MG/ML VIAL 25 MG IV (19:40)
[2024-07-13] MEDS: METOCLOPRAMIDE 10 MG/2 ML INJ IV (19:40)
[2024-07-13 19:56] LABS: Add Manual Diff / Slide Review NO; Basophils Absolute Auto 100 /uL (0-100); Basophils Percent Auto 0.6 % (0-2); Eosinophils Absolute Auto 300 /uL (0-450); Eosinophils Percent Auto 2.7 % (2-4); Hematocrit 38.8 % (36-46); Hemoglobin 12.9 g/dL (12.0-16.0); Lymphocytes Absolute Auto 3700 /uL (1100-4500); Lymphocytes Percent Auto 40.3 % (25-40); Mean Corpuscular HGB Conc 33.2 % (30-36); Mean Corpuscular Hemoglobin 30.1 PG (26-34); Mean Corpuscular Volume 90.8 fL (80-100); Monocytes Absolute Auto 600 /uL (0-900); Monocytes Percent Auto 6.5 % (3-14); Neutrophils Absolute Auto 4600 /uL (1500-7000); Neutrophils Percent Auto 49.9 % (50-75); Platelet Count 240 X10^3/uL (150-400); Red Blood Cell Count 4.28 X10^6/uL (4.0-5.2); Red Cell Distribution Width 13.1 % (11.6-14.8); White Blood Cell Count 9.2 X10^3/uL (4.5-11.0)
[2024-07-13 20:06] LABS: BUN Creatinine Ratio 26.3 (6-22); Blood Urea Nitrogen 21 mg/dL (7-17); Calcium 9.7 mg/dL (8.4-10.2); Carbon Dioxide 26 mmol/L (22-32); Chloride 103 mmol/L (98-107); Estimated Glomerular Filt Rate > 60 mL/min (>60); Glucose 152 mg/dL (80-110); HEMOLYSIS 25 (0-50); Potassium 3.9 mmol/L (3.4-5.1); Sodium 138 mmol/L (137-145)
[2024-07-13 20:18] LABS: Troponin I < 0.012 ng/mL (0.01-0.034)
--- NOTE | 2024-07-13 21:00 | ED.DIZZY ---
HPI - Dizziness General Chief Complaint: Dizziness Stated Complaint: sudden onset dizziness, can't focus Time Seen by Provider: 07/13/24 21:00 Source: patient and family Mode of arrival: Wheelchair History of Present Illness HPI Narrative: 79-year-old female with past medical history of hyperlipidemia hypertension presenting for dizziness, nausea and vomiting. She states that this started spontaneously earlier today. She states that this happened after she got up from her chair, she states that she felt like she was going to the right. But did not fall. Time of evaluation patient is dry heaving but not actively vomiting. She denies any trauma or falls not on any blood thinners. Patient denies any other symptoms such as headache visual disturbances chest pain shortness breath fever chills or any other GI/ symptoms time at time of evaluation patient NIH of 0 no focal deficits moving all 4 extremities spontaneously Related Data Home Medications Medication Instructions Recorded Confirmed albuterol sulfate 90 mcg/actuation 1 puff INH Q4H PRN Shortness Of 05/19/17 05/22/19 aerosol inhaler (Proventil HFA) Breath ##0 montelukast 10 mg tablet 10 mg PO QPM ##0 05/19/17 05/22/19 Glucosamine 1 tab PO DAILY 03/07/18 05/22/19 loratadine 10 mg tablet 10 mg PO QPM 03/07/18 05/22/19 (Allerclear) tiotropium bromide 2.5 2 puff inhalation DAILY 05/22/19 05/22/19 mcg/actuation mist for inhalation (Spiriva Respimat) Previous Rx's Medication Instructions Recorded budesonide-formoterol HFA 160 2 inhalation inhalation BID #10.2 01/28/18 mcg-4.5 mcg/actuation aerosol grams inhaler (Symbicort) simvastatin 40 mg tablet 40 mg PO BEDTIME #90 tabs 04/22/19 losartan 25 mg tablet (Cozaar) 25 mg PO DAILY #90 tabs 04/24/19 cephalexin 500 mg capsule 500 mg PO BID #14 caps 05/20/22 meclizine 25 mg tablet 25 mg PO BID PRN dizziness 1 week 07/13/24 #14 tabs Allergies Allergy/AdvReac Type Severity Reaction Status Date / Time No Known Drug Allergies Allergy Verified 10/29/22 20:04 Review of Systems Review of Systems Narrative: General: Denies fever, chills, weight loss HEENT: Denies headache, eye drainage, eye irritation, head trauma, sore throat, voice change Cardiovascular: Denies any chest pain, palpitations, tachycardia Respiratory: Denies any shortness of breath, cough, wheeze, stridor GI/: Denies any abdominal pain, nausea, vomiting, diarrhea, bright red blood per rectum, melanotic stools, urinary frequency, urinary retention, dysuria, hematuria MSK: Denies any joint pain, muscle pains, swelling Skin: Denies any rashes, lesions, discoloration Neuro: Positive dizziness Denies any headache, lightheadedness,fainting, weakness Psych: Denies SI/HI Patient History Medical History (Updated 07/13/24 @ 21:19 by Vinod Donald DO) Sleep apnea (2012) Hayfever Hip pain Osteopenia (2005) Hyperlipidemia (2013) Asthma Surgical History Anesthesia History of incision and drainage (11/2016) History of cataract surgery (2011) History of section (1975) History of section (1972) Family History Father Heart disease Alcoholism Mother Heart disease Emphysema of lung Brother Morbid obesity Diabetes mellitus Heart disease Hypertension Hyperlipidemia Sister Breast cancer Grandfather Lung disease Grandmother Heart disease Grandfather No problems noted. Grandmother No problems noted. Daughter No problems noted. Daughter No problems noted. Social History Smoking Status: Never smoker Tobacco: How many years used: 35 alcohol intake: never substance use type: does not use Smoking Status: Never smoker alcohol intake frequency: 0-2 drinks per day Exam Narrative Exam Narrative: General: Cooperative, well-developed, not in acute distress HEENT: Normocephalic, atraumatic, PERRLA, normal sclera, eyelids normal Neck: Active full range of motion, atraumatic Chest: Normal to inspection, negative crepitus, no overlying erythema ecchymosis Respiratory: Normal respiratory effort, not in acute respiratory distress, clear to auscultation bilaterally negative cough, wheeze, tachypnea, rhonchi, rales Cardiology: Regular rate rhythm negative gallop, murmur, rubs GI/: No tenderness to palpation, soft, non rigid, normal to inspection, exam deferred MSK: Full active range of motion in all 4 extremities, atraumatic, no tenderness to palpation of any bony prominences Skin: No rashes or lesions noted Neuro: NIH of 0 Alert awake oriented x3, moves all 4 extremities spontaneously, cranial nerves intact, able to answer all questions appropriately follows commands appropriately Psych: Cooperative, negative suicidal or homicidal ideations Initial Vital Signs Initial Vital Signs: Vital Signs Temperature 97.8 F 07/13/24 18:33 Pulse Rate 76 07/13/24 18:33 Respiratory Rate 18 07/13/24 18:33 Blood Pressure 177/76 H 07/13/24 18:33 Pulse Oximetry 94 07/13/24 18:33 Oxygen Delivery Method Room Air 07/13/24 18:33 Course Orders Ordered: ED Orders 07/13/24 18:38 CT head/brain wo con Stat EKG-12 Lead Stat 07/13/24 19:40 Basic Metabolic Panel Stat Complete Blood Count AUTO DIFF Stat Troponin I Stat 07/13/24 21:02 CXR [XR chest 1V] Stat Discontinued Medications Diphenhydramine HCl (Diphenhydramine 50 Mg/Ml Vial) 25 mg IV NOW ONE Stop: 07/13/24 19:31 Last Admin: 07/13/24 19:40 Dose: 25 mg Documented By: WENDY Meclizine HCl (Meclizine Hcl 12.5 Mg Tablet) 25 mg PO NOW ONE Stop: 07/13/24 21:14 Last Admin: 07/13/24 21:18 Dose: 25 mg Documented By: WENDY Metoclopramide HCl (Metoclopramide 10 Mg/2 Ml Inj) 10 mg IV NOW ONE Stop: 07/13/24 19:31 Last Admin: 07/13/24 19:40 Dose: 10 mg Documented By: WENDY Ondansetron HCl (Ondansetron 4 Mg Odt) 4 mg SL NOW ONE Stop: 07/13/24 19:09 Last Admin: 07/13/24 19:13 Dose: 4 mg Documented By: WENDY Vital Signs Vital signs: Vital Signs - 8 hr 07/13/24 18:33 07/13/24 18:44 07/13/24 18:56 Temperature 97.8 F Pulse Rate 76 73 Respiratory Rate 18 Blood Pressure 177/76 H Pulse Oximetry 94 90 L 94 Oxygen Delivery Method Room Air 07/13/24 18:56 07/13/24 19:00 07/13/24 19:01 Temperature Pulse Rate 72 70 Respiratory Rate 18 Blood Pressure 199/90 H Pulse Oximetry 93 92 Oxygen Delivery Method 07/13/24 19:01 07/13/24 19:30 07/13/24 19:30 Temperature Pulse Rate 75 Respiratory Rate Blood Pressure 162/76 H 157/74 H Pulse Oximetry 92 Oxygen Delivery Method 07/13/24 20:00 07/13/24 20:00 07/13/24 20:30 Temperature Pulse Rate 79 79 Respiratory Rate Blood Pressure 160/74 H Pulse Oximetry 94 95 Oxygen Delivery Method 07/13/24 20:30 07/13/24 21:00 07/13/24 21:00 Temperature Pulse Rate 82 Respiratory Rate 16 Blood Pressure 160/72 H 160/72 H Pulse Oximetry 93 Oxygen Delivery Method 07/13/24 21:30 07/13/24 21:30 07/13/24 22:00 Temperature Pulse Rate 72 82 Respiratory Rate Blood Pressure 163/77 H Pulse Oximetry 92 92 Oxygen Delivery Method 07/13/24 22:00 07/13/24 22:29 07/13/24 22:30 Temperature Pulse Rate 82 Respiratory Rate 18 Blood Pressure 162/62 H 164/72 H Pulse Oximetry 90 L Oxygen Delivery Method 07/13/24 22:31 Temperature Pulse Rate 80 Respiratory Rate Blood Pressure Pulse Oximetry 91 Oxygen Delivery Method MDM - Dizziness Differential Diagnosis Differential diagnosis: Likely benign paroxysmal positional vertigo, cerebrovascular accident and other (ACS, electrolyte abnormality) Lab Data 07/13/24 19:40 07/13/24 19:40 Labs: Lab Results 07/13/24 Range/Units 19:40 WBC 9.2 (4.5-11.0) X10^3/uL RBC 4.28 (4.0-5.2) X10^6/uL Hgb 12.9 (12.0-16.0) g/dL Hct 38.8 (36-46) % MCV 90.8 (80-100) fL MCH 30.1 (26-34) PG MCHC 33.2 (30-36) % RDW 13.1 (11.6-14.8) % Plt Count 240 (150-400) X10^3/uL Neut % (Auto) 49.9 L (50-75) % Lymph % (Auto) 40.3 H (25-40) % [place] % (Auto) 6.5 (3-14) % Eos % (Auto) 2.7 (2-4) % Baso % (Auto) 0.6 (0-2) % Neut # (Auto) 4600 (7935-1867) /uL Lymph # (Auto) 3700 (9552-1000) /uL [place] # (Auto) 600 (0-900) /uL Eos # (Auto) 300 (0-450) /uL Baso # (Auto) 100 (0-100) /uL Sodium 138 (137-145) mmol/L Potassium 3.9 (3.4-5.1) mmol/L Chloride 103 (98-107) mmol/L Carbon Dioxide 26 (22-32) mmol/L BUN 21 H (7-17) mg/dL Creatinine 0.80 (0.52-1.04) mg/dL Estimated GFR > 60 (>60) mL/min BUN/Creatinine Ratio 26.3 H (6-22) Glucose 152 H (80-110) mg/dL Calcium 9.7 (8.4-10.2) mg/dL Troponin I < 0.012 (0.01-0.034) ng/mL Imaging Data CT scan - head: Radiologist's Impression: [address] [address] [address] Scan Report Signed Patient: Pita Kauffman MR#: [id number] : 1945 Acct:[id number] Age/Sex: 79 / F Date of Service: 07/13/24 Loc: ED Accession Number: [id number] Procedure: CT head/brain wo con Ordering Provider: Vinod Donald D.O. PROCEDURE: CT HEAD/BRAIN WO CON INDICATIONS: sudden onset dizziness, nausea/vomiting TECHNIQUE: Noncontrast 4.5 mm thick angled axial sections acquired from the foramen magnum to the vertex, with coronal and sagittal reformats. For radiation dose reduction, the following was used: automated exposure control, adjustment of mA and/or kV according to patient size. COMPARISON: None. FINDINGS: Image quality: Diagnostic. CSF spaces: Basal cisterns are patent. No extra-axial fluid collections. The ventricles are symmetric in size and shape. Brain: No intracranial bleeds or mass effect. There is cerebral volume loss, with resultant ventricular and sulcal prominence. There are periventricular and deep white matter chronic small vessel ischemic changes. There is intracranial internal carotid artery atherosclerosis. Skull and face: Calvarium and visualized facial bones appear intact, without suspicious lesions. Sinuses: Visualized sinuses and mastoids are clear. IMPRESSION: No acute intracranial pathology. Chest x-ray: Radiologist's Impression: [address] [address] XRay Report Signed Patient: Pita Kauffman MR#: [id number] : 1945 Acct:[id number] Age/Sex: 79 / F Date of Service: 07/13/24 Loc: ED Accession Number: [id number] Procedure: XR chest 1V Ordering Provider: Vinod Donald D.O. PROCEDURE: XR CHEST 1V INDICATIONS: dizzy TECHNIQUE: One view of the chest was acquired. COMPARISON: [facility], , XR CHEST 1V, 10/29/2022, 20:26. FINDINGS: Surgical changes and devices: None. Lungs and pleura: Lungs are clear. No pleural effusions or pneumothorax. Mediastinum: Mediastinal contours appear normal. Heart size is normal. Bones and chest wall: No suspicious bony lesions. Overlying soft tissues appear unremarkable. IMPRESSION: No acute cardiopulmonary abnormality is seen. ECG Data Interpretation: EKG interpreted ED physician sinus 70 beats per minute QTC [address] changes no STEMI MDM Narrative Medical decision making narrative: 79-year-old female history of hyperlipidemia hypertension presents for vertiginous like symptoms started spontaneously at 6:00 p.m. she states that she was getting up from her chair turn to the right and then felt dizzy, states that she felt like she was being pulled to the right. She was NIH of 0 at time of evaluation just complaining of nausea, was given Zofran Benadryl Reglan with improvement of symptoms patient was also given meclizine. She was able to stand bear weight ambulate unassisted here in the emergency department. CT head without any acute findings. Lab work unremarkable troponin negative EKG nonischemic in nature chest x-ray without any acute cardiopulmonary abnormality, symptoms more likely peripheral vertigo versus central vertigo patient will be discharged home with meclizine and instructed follow up with primary care ENT in outpatient setting she was given strict return precautions verbalized understanding of this agrees to being discharged home with outpatient follow up Discharge Plan Departure Patient Disposition: Home Clinical Impression: Dizziness Instructions: DI for Vertigo Activity Restrictions/Additional Instructions: Please follow up with primary care and ENT in outpatient setting Please read the discharge instructions sheet carefully and bring all papers to all doctor follow-up visits, as it may contain information that your doctor may want to see. Disease processes change and evolve, if your symptoms worsen or if you develop any new symptoms that are concerning to you please return for evaluation. Your evaluation today does not show any evidence of any life-threatening/serious illnesses requiring admission to the hospital or surgery. Please follow-up with your doctor for re-evaluation in approximately 1 day. Seek immediate medical attention for any worrisome symptoms. *If you do not have a primary care provider please contact the [facility] Resource line at [phone]. They will ask some questions about your medical history and help get you set up with a doctor in the community. Prescriptions: New meclizine 25 mg tablet 25 mg PO BID PRN (Reason: dizziness) 7 Days Qty: 14 0RF No Action montelukast 10 MG tablet 10 mg PO QPM Qty: 0 albuterol sulfate [Proventil HFA] 90 MCG/PUFF HFA aerosol inhaler 1 puff INH Q4H PRN (Reason: Shortness Of Breath) Qty: 0 budesonide-formoterol [Symbicort] 160-4.5 mcg/actuation HFA aerosol inhaler 2 inhalation INHALATION BID Qty: 10.2 2RF simvastatin 40 mg tablet 40 mg PO BEDTIME Qty: 90 3RF losartan [Cozaar] 25 mg tablet 25 mg PO DAILY Qty: 90 3RF Spiriva Respimat 2.5 mcg/actuation mist 2 puff INHALATION DAILY loratadine [Allerclear] 10 mg Tablet 10 mg PO QPM Glucosamine 1 tab PO DAILY cephalexin 500 mg capsule 500 mg PO BID Qty: 14 0RF Referrals: Rosa Campbell MD [Primary Care Provider] - Stand Alone Forms: Patient Portal/API/Survey
--- NOTE | 2024-07-13 21:02 | DI.RAD.S_ITS ---
PROCEDURE: XR CHEST 1V INDICATIONS: dizzy TECHNIQUE: One view of the chest was acquired. COMPARISON: [facility], CR, XR CHEST 1V, 10/29/2022, 20:26. FINDINGS: Surgical changes and devices: None. Lungs and pleura: Lungs are clear. No pleural effusions or pneumothorax. Mediastinum: Mediastinal contours appear normal. Heart size is normal. Bones and chest wall: No suspicious bony lesions. Overlying soft tissues appear unremarkable. IMPRESSION: No acute cardiopulmonary abnormality is seen. Dictated by: Dell Mayberry M.D. on 07/13/2024 at 21:48 Approved by: Dell Mayberry M.D. on 07/13/2024 at 21:49
[2024-07-13] MEDS: MECLIZINE HCL 12.5 MG TABLET 25 MG PO (21:18)
== END 2024-07-13 22:52 | disposition home or self-care (01) ==
PROVIDERS: Emergency Provider Student in an Organized Health Care Education/Training Program; PCP Student in an Organized Health Care Education/Training Program
DX: R42 Dizziness and giddiness (principal); R11.2 Nausea with vomiting, unspecified; I10 Essential (primary) hypertension
CPT/HCPCS: 36415; 70450; 71045; 80048; 84484; 85025; 93005; 93010; 96374; 96375; 99284; J1200; J2765